=== PATIENT | female | born 1950 | race Caucasian/White ===

== ENCOUNTER 2017-07-10 14:26 | Emergency (ER) | payer MEDICAID ==
[~2017-07-10] VITALS: Ht 154.9 cm; Wt 83.5 kg
[~2017-07-10 14:26] MED LIST: ABIL5TAB6 PO; ASPI81TA82 PO; BETH25 PO; DICY10 PO; FOSA70TA PO; GABA300C3 PO; IPRAAER INH; LEXA10TA PO; LIDO5T TOP; LIPI10TA PO; NORC10TA2 PO; OMEP20TA39 PO; POTA10IN2 PO; PROP20TA3 PO; ROFL1TAB2 PO; ROPI1TAB72 PO; SPIRCAP INH; TRAZPOW PO; VIST25CA PO; VITATAB25 PO
[2017-07-10 14:29] VITALS: BP 128/65; PULSE 108; RESP 22; TEMP 98.8; O2SAT 95
[2017-07-10] MEDS ORDERED: ALBU0.08 NEB (14:43)
[2017-07-10] MEDS ORDERED: PROP20TA3 PO (14:43)
[2017-07-10] MEDS ORDERED: TRAZ100T6 PO (14:43)
[2017-07-10] MEDS ORDERED: ABIL2TAB2 PO (14:43)
[2017-07-10] MEDS ORDERED: POTA10TA2 PO (14:43)
[2017-07-10] MEDS ORDERED: SPIRCAP INH (14:43)
[2017-07-10] MEDS ORDERED: REQU3TAB PO (14:43)
[2017-07-10] MEDS ORDERED: OMEP20TA PO (14:43)
[2017-07-10] MEDS ORDERED: ASPI81CH PO (14:43)
[2017-07-10] MEDS ORDERED: FOSA70TA PO (14:43)
[2017-07-10] MEDS ORDERED: VITA1000 PO (14:44)
[2017-07-10] MEDS ORDERED: VIST25CA PO (14:44)
[2017-07-10] MEDS ORDERED: HYDR-3366 PO (14:44)
[2017-07-10] MEDS ORDERED: DOXY1LIQ3 PO (14:44)
[2017-07-10] MEDS ORDERED: BETH25TA2 PO (14:44)
[2017-07-10] MEDS ORDERED: DICY10 PO (14:44)
[2017-07-10] MEDS ORDERED: LEXA20TA PO (14:44)
[2017-07-10] MEDS ORDERED: GABA400C5 PO (14:44)
[2017-07-10] MEDS ORDERED: LIPI10TA PO (14:44)
[2017-07-10] MEDS ORDERED: BETH10TA2 PO (14:44)
[2017-07-10] MEDS ORDERED: VENTAER INH (14:45)
[2017-07-10 14:50] VITALS: BP 95/63; PULSE 100; RESP 20; TEMP 98.9; O2SAT 95
[2017-07-10] MEDS ORDERED: SODIUM CHLORIDE 0.9% FLUSH 10 ML FLUSH IVF PRN (15:00)
[2017-07-10] MEDS ORDERED: predniSONE 20 MG TAB PO ONE (15:00)
[2017-07-10] MEDS ORDERED: AZITHROMYCIN 250 MG TAB PO ONE (15:00)
[2017-07-10] MEDS: RESP: ALBUTEROL 2.5 MG/IPRATROPIUM 0.5 MG NEB (SCH) INH (15:06)
[2017-07-10] MEDS ORDERED: PRED-503 PO (15:41)
[2017-07-10] MEDS ORDERED: AZIT250T3 PO (15:41)
[2017-07-10] MEDS ORDERED: DOXY100C PO (15:42)
--- NOTE | 2017-07-10 15:43 | PD ---
HPI Chief Complaint: Respiratory Symptoms Time Seen by Provider: 14:40 Travel History International Travel<30 days: No Contact w/Intl Traveler<30days: No Traveled to known affect area: No History of Present Illness HPI Is a 66 year-old woman who presents to the emergency department complaining of shortness of breath. She is a history of COPD. She quit smoking about a week ago. 3 days ago she started getting increased cough, congestion, and difficulty breathing. She's had increased productive cough. She's been taking some [id number] cough cold medicines without significant relief. She has no fevers. No leg swelling. No real chest pain. History Past Medical History Narrative Medical COPD Hyperlipidemia Restless leg syndrome Urinary incontinence Depression/anxiety IBS Influenza Vaccination: No Menopausal: Yes Social History Alcohol Use: No Tobacco Use: Yes (1 PPD) Allergies-Medications (Allergen,Severity, Reaction): Coded Allergies: No Known Allergies (Verified , 05/31/16) Reported Meds & Prescriptions Reported Meds & Active Scripts Active Reported Ventolin Hfa 18 GM Inh (Albuterol Sulfate) 90 Mcg/Act Aer 2 Puff INH Q4-6H PRN Robitussin Nighttime Cough Liq (Doxylamine-Dextromethorphan Liq) 12.5-30 Mg/10 Ml Soln 10 Ml PO Q6H PRN Lipitor (Atorvastatin Calcium) 10 Mg Tab 10 Mg PO DAILY Bethanechol 25 Mg Tab 25 Mg PO QID Bethanechol 10 Mg Tab 10 Mg PO Q8HR Bentyl (Dicyclomine HCl) 10 Mg Cap 10 Mg PO TID PRN Lexapro (Escitalopram Oxalate) 20 Mg Tab 20 Mg PO DAILY Vitamin D-1000 (Cholecalciferol) 1,000 Unit Tab 50,000 Units PO WEEKLY [place] (Hydrocodone-Acetaminophen) 10-325 Mg Tab 1 Tab PO Q8HR PRN Gabapentin 400 Mg Cap 400 Cap PO TID Vistaril (Hydroxyzine Pamoate) 25 Mg Cap 25 Mg PO BID PRN Albuterol Neb (Albuterol Sulfate) 2.5 Mg/3 Ml Neb 2.5 Mg NEB Q4HR NEB While awake Potassium Chloride ER (Potassium Chloride) 10 Meq Tab 10 Meq PO BID Omeprazole 20 Mg Tab 20 Mg PO DAILY Propranolol (Propranolol HCl) 20 Mg Tab 20 Mg PO Q12HR Requip (Ropinirole) 3 Mg Tab 3 Mg PO HS Trazodone (Trazodone HCl) 100 Mg Tablet 100 Mg PO HS Spiriva Handihaler (Tiotropium Inh) 18 Mcg Cap 18 Mcg INH DAILY 1 capsule = 18 mcg Aspirin 81 Mg Chew 81 Mg PO DAILY Abilify (Aripiprazole) 2 Mg Tab 2 Mg PO DAILY Fosamax (Alendronate Sodium) 70 Mg Tab 70 Mg PO Q7D Review of Systems Except as stated in HPI: all other systems reviewed are Neg Physical Exam Narrative GENERAL: Well-appearing 66 year-old woman, no acute distress. SKIN: Focused skin assessment warm/dry. HEAD: Atraumatic. Normocephalic. CARDIOVASCULAR: Regular rate and rhythm. No murmur appreciated. RESPIRATORY: Lungs with moderate wheezing throughout the posterior lung lua. Moderate respiratory distress. Able to speak in short sentences. GASTROINTESTINAL: Abdomen soft, non-tender, nondistended. Hepatic and splenic margins not palpable. MUSCULOSKELETAL: No obvious deformities. No edema. NEUROLOGICAL: Awake and alert. No obvious cranial nerve deficits. Motor grossly within normal limits. Normal speech. Data Data Last Documented VS Vital Signs Date Time Temp Pulse Resp B/P Pulse Ox O2 Delivery O2 Flow Rate FiO2 07/10/17 14:55 95 Room Air 07/10/17 14:50 98.9 100 20 95/63 Orders Iv Access Insert/Monitor (07/10/17 14:48) Electrocardiogram (07/10/17 14:48) Ecg Monitoring (07/10/17 14:48) Oximetry (07/10/17 14:48) Oxygen Administration (07/10/17 14:48) Chest, Single Ap (07/10/17 14:48) Sodium Chloride 0.9% Flush (Ns Flush) (07/10/17 15:00) Albuterol-Ipratropium Neb (Duoneb Neb) (07/10/17 15:00) Azithromycin (Zithromax) (07/10/17 15:00) Prednisone (Deltasone) (07/10/17 15:00) MDM Medical Decision Making Medical Screen Exam Complete: Yes Emergency Medical Condition: Yes Interpretation(s) My review of EKG: Sinus tachycardia rate of 100, and leftward axis, normal intervals, no definite evidence of acute ischemia. Differential Diagnosis COPD exacerbation, pneumonia, URI, CHF, PE, other Narrative Course Medical decision making 26 old woman presents emergent arm with evidence of COPD exacerbation one week after quitting smoking. She was encouraged to continue smoking cessation. We' ll check x-ray to look for pneumonia. She overall looks fairly well. We'll give bronchodilators, steroids, antibiotics. Diagnosis Primary Impression: COPD exacerbation Additional Instructions: Take antibiotics as prescribed. Continue albuterol every 4 hours until symptoms resolve. Take steroids as prescribed. Follow-up with your primary doctor in 2-4 days. Return to the emergency department for any new or worsening symptoms. Med/Other Pt SpecificInfo: Prescription(s) given Scripts Doxycycline Hyclate 100 Mg [id number] Mg PO BID #20 CAP Ref 0 Prov:Torito Lozoya MD 07/10/17 Prednisone (Deltasone)20 Mg Tab40 Mg PO DAILY 10 Days Prov:Torito Lozoya MD 07/10/17 Disposition: 01 DISCHARGE HOME Condition: Stable Torito Lozoya MD Jul 10, 2017 15:43
--- NOTE | 2017-07-10 15:48 | RADRPT ---
EXAM DATE/TIME: 07/10/2017 15:37 [facility] COMPARISON: CHEST SINGLE AP, May 03, 2016, 18:46. INDICATIONS : Shortness of breath and chest pain. MEDICAL HISTORY : Chronic obstructive pulmonary disease. SURGICAL HISTORY : None. ENCOUNTER: Initial ACUITY: 3 days PAIN SCORE: 5/10 LOCATION: Left chest Middle. FINDINGS: A single view of the chest demonstrates mild interstitial vascular prominence similar to that seen pr eviously. There is no evidence of consolidating infiltrate. Heart remains normal in size. CONCLUSION: Chronic interstitial prominence without evidence of consolidating infiltrate, pulmonary edema or effu sions. Masood Gilbert MD on July 10, 2017 at 15:45 Board Certified Radiologist. This report was verified electronically.
[2017-07-10 16:27] VITALS: BP 120/58
--- NOTE | 2017-07-11 15:23 | EKG ---
Date Performed: 07/10/2017 Time Performed: 14:34:37 PTAGE: 66 years EKG: SINUS TACHYCARDIA Compared to prior tracing no significant change ABNORMAL RHYTHM ECG PREVIOUS TRACING : 05/03/2016 @ 1853 DOCTOR: Ej Azar Interpretating Date/Time 07/11/2017 15:21:07
== END 2017-07-10 16:29 | disposition home or self-care (01) ==
LOC: PHED 14:26
DX: J44.1 Chronic obstructive pulmonary disease with (acute) exacerbation (principal); Z79.82 Long term (current) use of aspirin; E78.5 Hyperlipidemia, unspecified; G25.81 Restless legs syndrome; K58.9 Irritable bowel syndrome, unspecified; F17.210 Nicotine dependence, cigarettes, uncomplicated; R07.9 Chest pain, unspecified; R00.0 Tachycardia, unspecified
CPT/HCPCS: 71010; 93005; 94640; 94664; 99284; J7512

== ENCOUNTER 2017-08-13 03:13 | Emergency (ER) | payer MEDICAID ==
[~2017-08-13] VITALS: Ht 154.9 cm; Wt 84.0 kg
[~2017-08-13 03:13] MED LIST changes: +ABIL2TAB2 PO; -ABIL5TAB6 PO; +ALBU0.08 NEB; +ASPI81CH PO; -ASPI81TA82 PO; +BETH10TA2 PO; -BETH25 PO; +BETH25TA2 PO; +DOXY100C PO; +DOXY1LIQ3 PO; -GABA300C3 PO; +GABA400C5 PO; +HYDR-3366 PO; -IPRAAER INH; -LEXA10TA PO; +LEXA20TA PO; -LIDO5T TOP; -NORC10TA2 PO; +OMEP20TA PO; -OMEP20TA39 PO; -POTA10IN2 PO; +POTA10TA2 PO; +PRED-503 PO; +REQU3TAB PO; -ROFL1TAB2 PO; -ROPI1TAB72 PO; +TRAZ100T6 PO; -TRAZPOW PO; +VENTAER INH; +VITA1000 PO; -VITATAB25 PO
[2017-08-13 03:21] VITALS: BP 135/73; PULSE 117; RESP 18; TEMP 98.3; O2SAT 96
--- NOTE | 2017-08-13 03:41 | PD ---
HPI Chief Complaint: Musculoskeletal Complaint Time Seen by Provider: 03:35 Travel History International Travel<30 days: No Contact w/Intl Traveler<30days: No Traveled to known affect area: No History of Present Illness HPI patient is a 66-year-old female smoker half pack per day presents emergency department for evaluation of right flank pain. Patient states she's been coughing congested the past week and now she has right flank pain whenever she takes deep breath or coughs. Denies any fever denies any sputum production. Denies any weight loss. Patient is concerned because she has had some liver problems the past but denies any blood in the stool yellowing of the eyes or skin .States symptoms been gradually worsening. Moderate in severity. PFSH Past Medical History Hx Anticoagulant Therapy: Yes (ASA) Arthritis: Yes Asthma: No Autoimmune Disease: Yes (RA) Blood Disorders: No Bipolar Disorder: Yes Anxiety: Yes Depression: Yes Heart Rhythm Problems: No Cancer: No Cardiac Catheterization: No Cardiovascular Problems: No High Cholesterol: Yes Chest Pain: No Congestive Heart Failure: No COPD: Yes Cerebrovascular Accident: Yes (TIA) Coronary Artery Disease: Yes Diabetes: No Diminished Hearing: No Deep Vein Thrombosis: Yes (PE) Endocrine: No Fibromyalgia: Yes GERD: Yes Headaches: Yes Hiatal Hernia: No Hypertension: No Immune Disorder: No Implanted Vascular Access Dvce: No Kidney Stones: No Musculoskeletal: Yes (fibromyalgia, arthritis) Neurologic: Yes (TIAs) Psychiatric: Yes Reproductive: No Respiratory: Yes Immunizations Current: Yes Migraines: Yes Myocardial Infarction: No Renal Failure: No Seizures: No Sickle Cell Disease: No Sleep Apnea: Yes Thyroid Disease: No Ulcer: No Tetanus Vaccination: > 5 Years Influenza Vaccination: Yes ?: Not Menopausal: Yes Ovarian Cysts: Yes Tubal Ligation: Yes (1975) Past Surgical History Abdominal Surgery: Yes AICD: No Appendectomy: Yes Cardiac Surgery: No Cholecystectomy: Yes Coronary Artery Bypass Graft: No Ear Surgery: No Endocrine Surgery: No Eye Surgery: No Genitourinary Surgery: No Gynecologic Surgery: Yes (right ovary removed) Hysterectomy: Yes Insulin Pump: No Joint Replacement: No Neurologic Surgery: Yes Oral Surgery: Yes (Complete teeth extraction) Pacemaker: No Thoracic Surgery: No Tonsillectomy: Yes Other Surgery: Yes (BL ankles, BL knees, pilonidal cyst) Family History Family Myocardial Infarction: Yes ( STATED) Social History Alcohol Use: No Tobacco Use: Yes (1 PPD) Substance Use: No Allergies-Medications (Allergen,Severity, Reaction): Coded Allergies: No Known Allergies (Verified , 08/13/17) Reported Meds & Prescriptions Reported Meds & Active Scripts Active Mucinex DM (Dextromethorphan-Guaifenesin) 30-600 Mg Tab 1 Tab PO BID PRN Ultram (Tramadol HCl) 50 Mg Tab 50 Mg PO Q6H PRN Reported Flexeril (Cyclobenzaprine HCl) 5 Mg Tab 5 Mg PO HS Ventolin Hfa 18 GM Inh (Albuterol Sulfate) 90 Mcg/Act Aer 2 Puff INH Q4-6H PRN Lipitor (Atorvastatin Calcium) 10 Mg Tab 10 Mg PO DAILY Bethanechol 25 Mg Tab 25 Mg PO QID Bentyl (Dicyclomine HCl) 10 Mg Cap 10 Mg PO TID PRN Lexapro (Escitalopram Oxalate) 20 Mg Tab 20 Mg PO DAILY Vitamin D-1000 (Cholecalciferol) 1,000 Unit Tab 50,000 Units PO WEEKLY Gabapentin 400 Mg Cap 400 Cap PO TID Vistaril (Hydroxyzine Pamoate) 25 Mg Cap 25 Mg PO BID PRN Albuterol Neb (Albuterol Sulfate) 2.5 Mg/3 Ml Neb 2.5 Mg NEB Q4HR NEB While awake Potassium Chloride ER (Potassium Chloride) 10 Meq Tab 10 Meq PO BID Omeprazole 20 Mg Tab 20 Mg PO DAILY Propranolol (Propranolol HCl) 20 Mg Tab 20 Mg PO Q12HR Requip (Ropinirole) 3 Mg Tab 3 Mg PO HS Trazodone (Trazodone HCl) 100 Mg Tablet 100 Mg PO HS Spiriva Handihaler (Tiotropium Inh) 18 Mcg Cap 18 Mcg INH DAILY 1 capsule = 18 mcg Aspirin 81 Mg Chew 81 Mg PO DAILY Abilify (Aripiprazole) 2 Mg Tab 2 Mg PO DAILY Fosamax (Alendronate Sodium) 70 Mg Tab 70 Mg PO Q7D Review of Systems Except as stated in HPI: all other systems reviewed are Neg Physical Exam Narrative GENERAL: Well-nourished, well-developed patient. SKIN: Focused skin assessment warm/dry. No rash no wound. No bruising. HEAD: Normocephalic. EYES: No scleral icterus. No injection or drainage. NECK: Supple, trachea midline. No JVD or lymphadenopathy. CARDIOVASCULAR: Regular rate and rhythm without murmurs, gallops, or rubs. RESPIRATORY: Breath sounds equal bilaterally. No accessory muscle use. Patient is some tenderness to the right flank, when she coughs she appears to have spasm of the right side of the ribs. GASTROINTESTINAL: Abdomen soft, non-tender, nondistended. MUSCULOSKELETAL: No cyanosis, or edema. BACK: Nontender without obvious deformity. No CVA tenderness. Data Data Last Documented VS Vital Signs Date Time Temp Pulse Resp B/P (MAP) Pulse Ox O2 Delivery O2 Flow Rate FiO2 08/13/17 04:58 92 18 136/82 (100) 97 Room Air 08/13/17 03:21 98.3 Orders Orders Chest, Pa & Lat (08/13/17 ) Tramadol (Ultram) (08/13/17 03:45) MDM Medical Decision Making Medical Screen Exam Complete: Yes Emergency Medical Condition: Yes Differential Diagnosis rib pain, rib contusion, rib fracture, pneumonia, URI Narrative Course patient roomed emergency department, she appears well in no obvious distress. Chest x-ray was reassuring. Discussed with her symptomatic management including Ultram for pain control and cough suppressants. Discussed follow-up with a primary care physician and return to ED criteria. She stable for discharge. Diagnosis Primary Impression: Cough Additional Impression: Chest wall pain Med/Other Pt SpecificInfo: Prescription(s) given Scripts Dextromethorphan-Guaifenesin (Mucinex DM) 30-600 Mg Tab 1 TAB PO BID Y for CHEST CONGESTION AND/OR COUGH, #20 TAB 0 Refills Prov: Kenton Hanks MD 08/13/17 Tramadol (Ultram) 50 Mg Tab 50 MG PO Q6H Y for PAIN, #20 TAB 0 Refills Prov: Kenton Hanks MD 08/13/17 Disposition: 01 DISCHARGE HOME Condition: Stable Kenton Hanks MD Aug 13, 2017 03:41
[2017-08-13] MEDS ORDERED: traMADol HCL 50 MG TAB PO ONE (03:45)
[2017-08-13] MEDS ORDERED: CYCL5TAB PO (03:55)
--- NOTE | 2017-08-13 04:19 | RADRPT ---
EXAM DATE/TIME: 08/13/2017 03:46 [facility] COMPARISON: No previous studies available for comparison. INDICATIONS : Right sided rib pain for several days. MEDICAL HISTORY : None. SURGICAL HISTORY : None. ENCOUNTER: Initial ACUITY: 2 days PAIN SCORE: 7/10 LOCATION: Right chest FINDINGS: PA and lateral views of the chest demonstrate the lungs to be symmetrically aerated without evidence of mass, infiltrate or effusion. The cardiomediastinal contours are unremarkable. Articular surface irregularity present at right humeral head. No rib abnormalities identified. CONCLUSION: 1. No active disease. No rib abnormalities identified. Delonte Clark MD on August 13, 2017 at 4:16 Board Certified Radiologist. This report was verified electronically.
[2017-08-13] MEDS ORDERED: MUCI30TA2 PO (04:28)
[2017-08-13] MEDS ORDERED: ULTR50TA5 PO (04:28)
[2017-08-13 04:58] VITALS: BP 136/82; PULSE 92; RESP 18; O2SAT 97
[2017-08-14] MEDS ORDERED: PERC5TAB12 PO (14:30)
== END 2017-08-13 04:59 | disposition home or self-care (01) ==
LOC: PHED 03:13
DX: R05 Cough (principal); R07.89 Other chest pain; E78.00 Pure hypercholesterolemia, unspecified; Z79.82 Long term (current) use of aspirin; Z87.39 Personal history of other diseases of the musculoskeletal system and connective tissue; Z86.2 Personal history of diseases of the blood and blood-forming organs and certain disorders involving the immune mechanism; Z86.59 Personal history of other mental and behavioral disorders; Z87.09 Personal history of other diseases of the respiratory system; Z86.718 Personal history of other venous thrombosis and embolism; Z87.19 Personal history of other diseases of the digestive system; Z86.69 Personal history of other diseases of the nervous system and sense organs
CPT/HCPCS: 71020; 99283

== ENCOUNTER 2017-08-14 11:35 | Emergency (ER) | payer MEDICAID ==
[~2017-08-14] VITALS: Ht 162.6 cm; Wt 84.7 kg
[~2017-08-14 11:35] MED LIST changes: +CYCL5TAB PO; +MUCI30TA2 PO; +ULTR50TA5 PO
[2017-08-14 11:38] VITALS: BP 117/56; PULSE 100; RESP 20; TEMP 98.5; O2SAT 93
[2017-08-14] MEDS ORDERED: SODIUM CHLOR 0.9% 1000 ML INJ 1,000 ML IV SCH (12:59)
[2017-08-14] MEDS ORDERED: SODIUM CHLORIDE 0.9% FLUSH 10 ML FLUSH IV FLUSH PRN (13:00)
[2017-08-14] MEDS ORDERED: MORPHINE SULFATE 4 MG/ML INJ IV PUSH ONE (13:00)
--- NOTE | 2017-08-14 13:06 | PD ---
HPI Chief Complaint: Abdominal Pain Time Seen by Provider: 12:44 Travel History International Travel<30 days: No Contact w/Intl Traveler<30days: No Traveled to known affect area: No History of Present Illness HPI Patient is 66-year-old female with history of COPD, presents to emergency room complaints of right-sided flank pain. Patient reports that she has been having persistent right-sided flank pain for the past 3 days, reports that symptoms have been unrelenting and is worse with exertion as well as deep inspiration. Patient reports that she is not suffering any trauma, she has been doing heavy lifting in preparation for [place]. Reports that she was seen in the ER yesterday and was diagnosed with cough and chest wall pain and was given a prescription for tramadol as well as for dextromethorphan - guanifensen. Patient reports no relief of symptoms with this. Patient is concerned as she is still having persistent right-sided flank pain. Patient denies hematuria, urinary urgency frequency. Patient with no other complaints. PFSH Past Medical History Hx Anticoagulant Therapy: Yes (ASA) Arthritis: Yes Asthma: No Autoimmune Disease: Yes (RA) Blood Disorders: No Bipolar Disorder: Yes Anxiety: Yes Depression: Yes Heart Rhythm Problems: No Cancer: No Cardiac Catheterization: No Cardiovascular Problems: No High Cholesterol: Yes Chest Pain: No Congestive Heart Failure: No COPD: Yes Cerebrovascular Accident: Yes (TIA) Coronary Artery Disease: Yes Diabetes: No Diminished Hearing: No Deep Vein Thrombosis: Yes (PE) Endocrine: No Fibromyalgia: Yes GERD: Yes Headaches: Yes Hiatal Hernia: No Hypertension: No Immune Disorder: No Implanted Vascular Access Dvce: No Kidney Stones: No Musculoskeletal: Yes (fibromyalgia, arthritis) Neurologic: Yes (TIAs) Psychiatric: Yes Reproductive: No Respiratory: Yes Immunizations Current: Yes Migraines: Yes Myocardial Infarction: No Renal Failure: No Seizures: No Sickle Cell Disease: No Sleep Apnea: Yes Thyroid Disease: No Ulcer: No Menopausal: Yes Ovarian Cysts: Yes Tubal Ligation: Yes (1975) Past Surgical History Abdominal Surgery: Yes AICD: No Appendectomy: Yes Cardiac Surgery: No Cholecystectomy: Yes Coronary Artery Bypass Graft: No Ear Surgery: No Endocrine Surgery: No Eye Surgery: No Genitourinary Surgery: No Gynecologic Surgery: Yes (right ovary removed) Hysterectomy: Yes Insulin Pump: No Joint Replacement: No Neurologic Surgery: Yes Oral Surgery: Yes (Complete teeth extraction) Pacemaker: No Thoracic Surgery: No Tonsillectomy: Yes Other Surgery: Yes (BL ankles, BL knees, pilonidal cyst) Family History Family Myocardial Infarction: Yes ( STATED) Social History Alcohol Use: No Tobacco Use: Yes (1 PPD) Substance Use: No Allergies-Medications (Allergen,Severity, Reaction): Coded Allergies: No Known Allergies (Verified , 08/13/17) Reported Meds & Prescriptions Reported Meds & Active Scripts Active Percocet (Oxycodone-Acetaminophen) 5-325 mg Tab 1 Tab PO Q6H PRN 3 Days Mucinex DM (Dextromethorphan-Guaifenesin) 30-600 Mg Tab 1 Tab PO BID PRN Ultram (Tramadol HCl) 50 Mg Tab 50 Mg PO Q6H PRN Reported Flexeril (Cyclobenzaprine HCl) 5 Mg Tab 5 Mg PO HS Ventolin Hfa 18 GM Inh (Albuterol Sulfate) 90 Mcg/Act Aer 2 Puff INH Q4-6H PRN Lipitor (Atorvastatin Calcium) 10 Mg Tab 10 Mg PO DAILY Bethanechol 25 Mg Tab 25 Mg PO QID Bentyl (Dicyclomine HCl) 10 Mg Cap 10 Mg PO TID PRN Lexapro (Escitalopram Oxalate) 20 Mg Tab 20 Mg PO DAILY Vitamin D-1000 (Cholecalciferol) 1,000 Unit Tab 50,000 Units PO WEEKLY Gabapentin 400 Mg Cap 400 Cap PO TID Vistaril (Hydroxyzine Pamoate) 25 Mg Cap 25 Mg PO BID PRN Albuterol Neb (Albuterol Sulfate) 2.5 Mg/3 Ml Neb 2.5 Mg NEB Q4HR NEB While awake Potassium Chloride ER (Potassium Chloride) 10 Meq Tab 10 Meq PO BID Omeprazole 20 Mg Tab 20 Mg PO DAILY Propranolol (Propranolol HCl) 20 Mg Tab 20 Mg PO Q12HR Requip (Ropinirole) 3 Mg Tab 3 Mg PO HS Trazodone (Trazodone HCl) 100 Mg Tablet 100 Mg PO HS Spiriva Handihaler (Tiotropium Inh) 18 Mcg Cap 18 Mcg INH DAILY 1 capsule = 18 mcg Aspirin 81 Mg Chew 81 Mg PO DAILY Abilify (Aripiprazole) 2 Mg Tab 2 Mg PO DAILY Fosamax (Alendronate Sodium) 70 Mg Tab 70 Mg PO Q7D Review of Systems General / Constitutional: No: Fever Eyes: No: Visual changes HENT: No: Headaches Cardiovascular: No: Chest Pain or Discomfort Respiratory: No: Shortness of Breath Gastrointestinal: No: Abdominal Pain Genitourinary: Positive: Flank Pain, No: Dysuria Musculoskeletal: No: Pain Skin: No Rash Neurologic: No: Weakness Psychiatric: No: Depression Endocrine: No: Polydipsia Hematologic/Lymphatic: No: Easy Bruising Physical Exam Narrative GENERAL: Mild distress SKIN: Focused skin assessment warm/dry. HEAD: Atraumatic. Normocephalic. EYES: Pupils equal and round. No scleral icterus. No injection or drainage. ENT: No nasal bleeding or discharge. Mucous membranes pink and moist. NECK: Trachea midline. No JVD. CARDIOVASCULAR: Regular rate and rhythm. No murmur appreciated. RESPIRATORY: No accessory muscle use. Clear to auscultation. Breath sounds equal bilaterally. GASTROINTESTINAL: Abdomen soft, non-tender, nondistended. Hepatic and splenic margins not palpable. MUSCULOSKELETAL: No obvious deformities. No clubbing. No cyanosis. No edema. Right sided flank pain NEUROLOGICAL: Awake and alert. No obvious cranial nerve deficits. Motor grossly within normal limits. Normal speech. PSYCHIATRIC: Appropriate mood and affect; insight and judgment normal. Data Data Last Documented VS Vital Signs Date Time Temp Pulse Resp B/P (MAP) Pulse Ox O2 Delivery O2 Flow Rate FiO2 08/14/17 14:14 68 18 147/79 (101) 94 Room Air 08/14/17 11:38 98.5 Orders Orders Complete Blood Count With Diff (08/14/17 12:59) Comprehensive Metabolic Panel (08/14/17 12:59) Prothrombin Time / Inr (Pt) (08/14/17 12:59) Act Partial Throm Time (Ptt) (08/14/17 12:59) Urinalysis - C+S If Indicated (08/14/17 12:59) Ct Abd/Pel W/O Iv Contrast (08/14/17 12:59) Morphine Inj (Morphine Inj) (08/14/17 13:00) Sodium Chlor 0.9% 1000 Ml Inj (Ns 1000 M (08/14/17 12:59) Sodium Chloride 0.9% Flush (Ns Flush) (08/14/17 13:00) Labs Laboratory Tests Test 08/14/17 13:00 08/14/17 13:14 Urine Collection Type VOIDED Urine Color YELLOW Urine Turbidity CLEAR Urine pH 6.0 Urine Specific [place] 1.017 Urine Protein NEG mg/dL Urine Glucose (UA) NEG mg/dL Urine Ketones NEG mg/dL Urine Occult Blood NEG Urine Nitrite NEG Urine Bilirubin NEG Urine Leukocyte Esterase NEG Urine RBC 0-3 /hpf Urine WBC 0-2 /hpf Urine Squamous Epithelial Cells 0-3 /hpf Microscopic Urinalysis Comment CULT NOT INDICATED White Blood Count 10.8 TH/MM3 Red Blood Count 5.11 MIL/MM3 Hemoglobin 14.0 GM/DL Hematocrit 41.9 % Mean Corpuscular Volume 81.9 FL Mean Corpuscular Hemoglobin 27.4 PG Mean Corpuscular Hemoglobin Concent 33.4 % Red Cell Distribution Width 12.9 % Platelet Count 278 TH/MM3 Mean Platelet Volume 7.0 FL Neutrophils (%) (Auto) 66.9 % Lymphocytes (%) (Auto) 20.6 % Monocytes (%) (Auto) 9.5 % Eosinophils (%) (Auto) 2.3 % Basophils (%) (Auto) 0.7 % Neutrophils # (Auto) 7.3 TH/MM3 Lymphocytes # (Auto) 2.2 TH/MM3 Monocytes # (Auto) 1.0 TH/MM3 Eosinophils # (Auto) 0.2 TH/MM3 Basophils # (Auto) 0.1 TH/MM3 CBC Comment DIFF FINAL Differential Comment Prothrombin Time 10.9 SEC Prothromb Time International Ratio 1.0 RATIO Activated Partial Thromboplast Time 27.0 SEC Blood Urea Nitrogen 13 MG/DL Creatinine 0.89 MG/DL Random Glucose 81 MG/DL Total Protein 7.5 GM/DL Albumin 3.5 GM/DL Calcium Level 8.9 MG/DL Alkaline Phosphatase 88 U/L Aspartate Amino Transf (AST/SGOT) 23 U/L Alanine Aminotransferase (ALT/SGPT) 24 U/L Total Bilirubin 0.6 MG/DL Sodium Level 135 MEQ/L Potassium Level 4.3 MEQ/L Chloride Level 100 MEQ/L Carbon Dioxide Level 27.7 MEQ/L Anion Gap 7 MEQ/L Estimat Glomerular Filtration Rate 64 ML/MIN [facility] Medical Decision Making Medical Screen Exam Complete: Yes Emergency Medical Condition: Yes Medical Record Reviewed: Yes Interpretation(s) Vital Signs Date Time Temp Pulse Resp B/P (MAP) Pulse Ox O2 Delivery O2 Flow Rate FiO2 08/14/17 11:38 98.5 100 20 117/56 (76) 93 Differential Diagnosis Differential includes pneumonia, COPD exacerbation, nephrolithiasis, cystitis, pyelonephritis, musculoskeletal pain, rib strain, electrolyte abnormality Narrative Course Patient is a 66-year-old female who returns to emergency room with complaints of right sided flank pain. She has been having right-sided flank pain which has been ongoing for the past 3 days, reports that she was seen in emergency room yesterday and was diagnosed with rib strain and was sent home with tramadol , reports no relief of symptoms with these medications. Patient reports continued pain to her right flank with movement as well as on exertion. Lab work ordered. CT of the abdomen and pelvis without contrast ordered for evaluation of stones or for further etiology of pain Vital Signs Date Time Temp Pulse Resp B/P (MAP) Pulse Ox O2 Delivery O2 Flow Rate FiO2 08/14/17 14:14 68 18 147/79 (101) 94 Room Air 08/14/17 13:40 18 08/14/17 11:38 98.5 100 20 117/56 (76) 93 Laboratory Tests Test 08/14/17 13:00 08/14/17 13:14 Urine Collection Type VOIDED Urine Color YELLOW (YELLW/STRAW) Urine Turbidity CLEAR (CLEAR) Urine pH 6.0 (5.0-8.5) Urine Specific [place] 1.017 (1.002-1.035) Urine Protein NEG mg/dL (NEG-TRACE) Urine Glucose (UA) NEG mg/dL (NEG) Urine Ketones NEG mg/dL (NEG) Urine Occult Blood NEG (NEG) Urine Nitrite NEG (NEG) Urine Bilirubin NEG (NEG) Urine Leukocyte Esterase NEG (NEG) Urine RBC 0-3 /hpf (0-3) Urine WBC 0-2 /hpf (0-5) Urine Squamous Epithelial Cells 0-3 /hpf (0-5) Microscopic Urinalysis Comment CULT NOT INDICATED White Blood Count 10.8 TH/MM3 (4.0-11.0) Red Blood Count 5.11 MIL/MM3 (4.00-5.30) Hemoglobin 14.0 GM/DL (11.6-15.3) Hematocrit 41.9 % (35.0-46.0) Mean Corpuscular Volume 81.9 FL (80.0-100.0) Mean Corpuscular Hemoglobin 27.4 PG (27.0-34.0) Mean Corpuscular Hemoglobin Concent 33.4 % (32.0-36.0) Red Cell Distribution Width 12.9 % (11.6-17.2) Platelet Count 278 TH/MM3 (150-450) Mean Platelet Volume 7.0 FL (7.0-11.0) Neutrophils (%) (Auto) 66.9 % (16.0-70.0) Lymphocytes (%) (Auto) 20.6 % (9.0-44.0) Monocytes (%) (Auto) 9.5 % (0.0-8.0) Eosinophils (%) (Auto) 2.3 % (0.0-4.0) Basophils (%) (Auto) 0.7 % (0.0-2.0) Neutrophils # (Auto) 7.3 TH/MM3 (1.8-7.7) Lymphocytes # (Auto) 2.2 TH/MM3 (1.0-4.8) Monocytes # (Auto) 1.0 TH/MM3 (0-0.9) Eosinophils # (Auto) 0.2 TH/MM3 (0-0.4) Basophils # (Auto) 0.1 TH/MM3 (0-0.2) CBC Comment DIFF FINAL Differential Comment Prothrombin Time 10.9 SEC (9.8-11.6) Prothromb Time International Ratio 1.0 RATIO Activated Partial Thromboplast Time 27.0 SEC (24.3-30.1) Blood Urea Nitrogen 13 MG/DL (7-18) Creatinine 0.89 MG/DL (0.50-1.00) Random Glucose 81 MG/DL (74-106) Total Protein 7.5 GM/DL (6.4-8.2) Albumin 3.5 GM/DL (3.4-5.0) Calcium Level 8.9 MG/DL (8.5-10.1) Alkaline Phosphatase 88 U/L (45-117) Aspartate Amino Transf (AST/SGOT) 23 U/L (15-37) Alanine Aminotransferase (ALT/SGPT) 24 U/L (10-53) Total Bilirubin 0.6 MG/DL (0.2-1.0) Sodium Level 135 MEQ/L (136-145) Potassium Level 4.3 MEQ/L (3.5-5.1) Chloride Level 100 MEQ/L (98-107) Carbon Dioxide Level 27.7 MEQ/L (21.0-32.0) Anion Gap 7 MEQ/L (5-15) Estimat Glomerular Filtration Rate 64 ML/MIN (>89) Last Impressions Abdomen/Pelvis CT 08/14/17 1259 Signed Impressions: Service Date/Time: August 13:29 - CONCLUSION: Unremarkable for acute pathology. Status post suspected hysterectomy and cholecystectomy. No etiology for right flank pain is noted. Torito Adkins MD Patient reevaluated, she feeling much better at this time. Reviewed all labs and all studies with patient in detail, patient with most likely muscle skeletal flank pain. Signs and symptoms of when to return to the emergency room was reviewed patient in detail. Patient will follow up with her primary care doctor and will return to the emergency room as needed. Diagnosis Primary Impression: Flank pain, acute Patient Instructions: General Instructions, Narcotic given in the ED Additional Instructions: Please return to the emergency room as needed Please follow-up with your primary care doctor Return to the emergency room symptoms worsen or progress Do not drive or operate heavy machinery while taking narcotic pain medications Med/Other Pt SpecificInfo: Prescription(s) given Scripts Oxycodone-Acetaminophen (Percocet) 5-325 mg Tab 1 TAB PO Q6H Y for PAIN for 3 Days, #12 TAB 0 Refills Prov: Ghazala Tenorio DO 08/14/17 Disposition: 01 DISCHARGE HOME Condition: Stable Ghazala Tenorio DO Aug 14, 2017 13:05
[2017-08-14 13:20] LABS: AUTOMATED NEUTROPHIL # 7.3 TH/MM3 (1.8-7.7); BASOPHIL # 0.1 TH/MM3 (0-0.2); BASOPHIL % 0.7 % (0.0-2.0); EOSINOPHIL # 0.2 TH/MM3 (0-0.4); EOSINOPHIL % 2.3 % (0.0-4.0); HEMATOCRIT 41.9 % (35.0-46.0); HEMO FLAGS DIFF FINAL; LYMPH % 20.6 % (9.0-44.0); LYMPHOCYTE # 2.2 TH/MM3 (1.0-4.8); MEAN CELL VOLUME 81.9 FL (80.0-100.0); MEAN CORPUSCULAR HEMOGLOBIN 27.4 PG (27.0-34.0); MEAN CORPUSCULAR HGB CONC 33.4 % (32.0-36.0); MONO % 9.5 % (0.0-8.0); NEUT % 66.9 % (16.0-70.0); PLATELET COUNT 278 TH/MM3 (150-450); RED BLOOD COUNT 5.11 MIL/MM3 (4.00-5.30); RED CELL DISTRIBUTION WIDTH 12.9 % (11.6-17.2); WHITE BLOOD COUNT 10.8 TH/MM3 (4.0-11.0)
[2017-08-14 13:25] LABS: BLOOD, URINE NEG (NEG); GLUCOSE,URINE NEG (NEG); KETONE, URINE NEG (NEG); NITRITE,URINE NEG (NEG)
[2017-08-14 13:32] LABS: CHLORIDE 100 MEQ/L (98-107); POTASSIUM 4.3 MEQ/L (3.5-5.1); SODIUM (NA) 135 MEQ/L (136-145)
[2017-08-14 13:36] LABS: ANION GAP 7 MEQ/L (5-15); BICARBONATE 27.7 MEQ/L (21.0-32.0); BLOOD UREA NITROGEN 13 MG/DL (7-18)
[2017-08-14 13:38] LABS: PROTHROMBIN TIME - PATIENT 10.9 SEC (9.8-11.6)
[2017-08-14 13:39] LABS: AST (GOT) 23 U/L (15-37)
[2017-08-14 13:40] LABS: ALT (GPT) 24 U/L (10-53); GLOMERULAR FILTRATION RATE 64 ML/MIN (>89)
[2017-08-14 13:42] LABS: ALKALINE PHOSPHATASE 88 U/L (45-117); TOTAL BILIRUBIN ADULT 0.6 MG/DL (0.2-1.0)
[2017-08-14 13:52] LABS: COMMENT (UR) CULT NOT INDICATED; CULTURE IF INDICATED CULT NOT INDICATED; METHOD OF COLLECTION VOIDED; RBC, URINE 0-3 /hpf (0-3); SQUAMOUS EPITHELIAL CELL URINE 0-3 /hpf (0-5); URINE COLOR YELLOW (YELLW/STRAW); WBC, URINE 0-2 /hpf (0-5)
--- NOTE | 2017-08-14 14:06 | RADRPT ---
EXAM DATE/TIME: 08/14/2017 13:29 [facility] COMPARISON: CT ABDOMEN & PELVIS W CONTRAST, November 02, 2014, 10:07. INDICATIONS : Right flank pain x 3 days. ORAL CONTRAST: No oral contrast ingested. RADIATION DOSE: 23.17 CTDIvol (mGy) MEDICAL HISTORY : Chronic obstructive pulmonary disease. Gastroesophageal reflux disease. Deep venous thrombosis.Cerebr ovascual accident. Hypertension. SURGICAL HISTORY : Tubal ligation. Hysterectomy. ENCOUNTER: Initial ACUITY: 3 days PAIN SCALE: 7/10 LOCATION: Right flank TECHNIQUE: Volumetric scanning of the abdomen and pelvis was performed. Using automated exposure control and ad justment of the mA and/or kV according to patient size, radiation dose was kept as low as reasonably achievable to obtain optimal diagnostic quality images. DICOM format image data is available electro nically for review and comparison. FINDINGS: LOWER LUNGS: The visualized lower lungs are clear. LIVER: Homogeneous density without lesion. There is no dilation of the biliary tree. Suspected cholecystect janine SPLEEN: Normal size without lesion. PANCREAS: Within normal limits. KIDNEYS: Normal in size and shape. There is no mass, stone, or hydronephrosis other the small cyst mid right kidney. ADRENAL GLANDS: Within normal limits. VASCULAR: There is no aortic aneurysm. BOWEL/MESENTERY: The stomach, small bowel, and colon demonstrate no acute abnormality. There is no free intraperitone al air or fluid. ABDOMINAL WALL: Within normal limits. RETROPERITONEUM: There is no lymphadenopathy. BLADDER: No wall thickening or mass. REPRODUCTIVE: S/p hysterectomy. INGUINAL: There is no lymphadenopathy or hernia. MUSCULOSKELETAL: Within normal limits for patient age. CONCLUSION: Unremarkable for acute pathology. Status post suspected hysterectomy and cholecystectomy. No etiology for right flank pain is noted. Torito Adkins MD on August 14, 2017 at 14:01 Board Certified Radiologist. This report was verified electronically.
[2017-08-14 14:14] VITALS: BP 147/79; PULSE 68; RESP 18; O2SAT 94
[2017-08-14] MEDS ORDERED: PERC5TAB12 PO (14:30)
== END 2017-08-14 14:39 | disposition home or self-care (01) ==
LOC: PHED 11:35
DX: R10.9 Unspecified abdominal pain (principal); I25.10 Atherosclerotic heart disease of native coronary artery without angina pectoris; M79.7 Fibromyalgia; F17.200 Nicotine dependence, unspecified, uncomplicated
CPT/HCPCS: 74176; 80053; 81001; 85025; 85610; 85730; 96361; 96374; 99285; J2270; J7030

== ENCOUNTER 2017-08-26 14:17 | Emergency (ER) | payer MEDICAID ==
[~2017-08-26] VITALS: Ht 154.9 cm; Wt 85.7 kg
[~2017-08-26 14:17] MED LIST changes: -BETH10TA2 PO; -DOXY100C PO; -DOXY1LIQ3 PO; -HYDR-3366 PO; +PERC5TAB12 PO; -PRED-503 PO
[2017-08-26 14:21] VITALS: BP 131/66; PULSE 130; RESP 16; TEMP 98.8; O2SAT 94
[2017-08-26] MEDS ORDERED: methylPREDNISolone SOD SUCC 125 MG/2 ML VIAL IV PUSH ONE (14:45)
[2017-08-26] MEDS ORDERED: diphenhydrAMINE HCL 50 MG/ML VIAL IV PUSH ONE (14:45)
--- NOTE | 2017-08-26 14:53 | PD ---
HPI Chief Complaint: Allergic/Adverse Reaction Time Seen by Provider: 14:32 Travel History International Travel<30 days: No Contact w/Intl Traveler<30days: No Traveled to known affect area: No History of Present Illness HPI This patient complains of allergic reaction. She started on an antibiotic 3 days ago but she doesn't know the name of it. This morning she developed diffuse hives and itching on her body. Includes extremities and torso. No swelling of lips or tongue or shortness of breath. Symptoms severity is moderate. No alleviating factors. Exacerbating factors include recent antibiotic use. No history of prior allergies PFSH Past Medical History Hx Anticoagulant Therapy: Yes (ASA) Arthritis: Yes Asthma: No Autoimmune Disease: Yes (RA) Blood Disorders: No Bipolar Disorder: Yes Anxiety: Yes Depression: Yes Heart Rhythm Problems: No Cancer: No Cardiac Catheterization: No Cardiovascular Problems: No High Cholesterol: Yes Chest Pain: No Congestive Heart Failure: No COPD: Yes Cerebrovascular Accident: Yes (TIA) Coronary Artery Disease: Yes Diabetes: No Diminished Hearing: No Deep Vein Thrombosis: Yes (PE) Endocrine: No Fibromyalgia: Yes GERD: Yes Headaches: Yes Hiatal Hernia: No Hypertension: No Immune Disorder: No Implanted Vascular Access Dvce: No Kidney Stones: No Musculoskeletal: Yes (fibromyalgia, arthritis) Neurologic: Yes (TIAs) Psychiatric: Yes Reproductive: No Respiratory: Yes Immunizations Current: Yes Migraines: Yes Myocardial Infarction: No Renal Failure: No Seizures: No Sickle Cell Disease: No Sleep Apnea: Yes Thyroid Disease: No Ulcer: No Tetanus Vaccination: > 5 Years Influenza Vaccination: Yes ?: Not Menopausal: Yes Ovarian Cysts: Yes Tubal Ligation: Yes (1975) Past Surgical History Abdominal Surgery: Yes AICD: No Appendectomy: Yes Cardiac Surgery: No Cholecystectomy: Yes Coronary Artery Bypass Graft: No Ear Surgery: No Endocrine Surgery: No Eye Surgery: No Genitourinary Surgery: No Gynecologic Surgery: Yes (right ovary removed) Hysterectomy: Yes Insulin Pump: No Joint Replacement: No Neurologic Surgery: Yes Oral Surgery: Yes (Complete teeth extraction) Pacemaker: No Thoracic Surgery: No Tonsillectomy: Yes Other Surgery: Yes (BL ankles, BL knees, pilonidal cyst) Family History Family Myocardial Infarction: Yes ( STATED) Social History Alcohol Use: No Tobacco Use: Yes (1 PPD) Substance Use: No Allergies-Medications (Allergen,Severity, Reaction): Coded Allergies: No Known Allergies (Verified , 08/26/17) Reported Meds & Prescriptions Reported Meds & Active Scripts Active Mucinex DM (Dextromethorphan-Guaifenesin) 30-600 Mg Tab 1 Tab PO BID PRN Reported Flexeril (Cyclobenzaprine HCl) 5 Mg Tab 5 Mg PO HS Ventolin Hfa 18 GM Inh (Albuterol Sulfate) 90 Mcg/Act Aer 2 Puff INH Q4-6H PRN Lipitor (Atorvastatin Calcium) 10 Mg Tab 10 Mg PO DAILY Bethanechol 25 Mg Tab 25 Mg PO QID Bentyl (Dicyclomine HCl) 10 Mg Cap 10 Mg PO TID PRN Lexapro (Escitalopram Oxalate) 20 Mg Tab 20 Mg PO DAILY Vitamin D-1000 (Cholecalciferol) 1,000 Unit Tab 50,000 Units PO WEEKLY Gabapentin 400 Mg Cap 400 Cap PO TID Vistaril (Hydroxyzine Pamoate) 25 Mg Cap 25 Mg PO BID PRN Albuterol Neb (Albuterol Sulfate) 2.5 Mg/3 Ml Neb 2.5 Mg NEB Q4HR NEB While awake Potassium Chloride ER (Potassium Chloride) 10 Meq Tab 10 Meq PO BID Omeprazole 20 Mg Tab 20 Mg PO DAILY Propranolol (Propranolol HCl) 20 Mg Tab 20 Mg PO Q12HR Requip (Ropinirole) 3 Mg Tab 3 Mg PO HS Trazodone (Trazodone HCl) 100 Mg Tablet 100 Mg PO HS Spiriva Handihaler (Tiotropium Inh) 18 Mcg Cap 18 Mcg INH DAILY 1 capsule = 18 mcg Aspirin 81 Mg Chew 81 Mg PO DAILY Abilify (Aripiprazole) 2 Mg Tab 2 Mg PO DAILY Fosamax (Alendronate Sodium) 70 Mg Tab 70 Mg PO Q7D Review of Systems General / Constitutional: No: Fever Eyes: No: Visual changes HENT: No: Headaches Cardiovascular: Positive: Tachycardia, No: Chest Pain or Discomfort Respiratory: No: Shortness of Breath Gastrointestinal: No: Abdominal Pain Genitourinary: No: Dysuria Musculoskeletal: No: Pain Skin: Positive Rash, Positive Itching, Positive Hives Neurologic: No: Weakness Psychiatric: No: Depression Endocrine: No: Polydipsia Hematologic/Lymphatic: No: Easy Bruising Physical Exam Narrative GENERAL: Well-nourished, well-developed patient in no apparent distress. SKIN: Focused skin assessment reveals diffuse urticarial rash on extremities and trunk, both front and back . Skin is Warm and dry. HEAD: Atraumatic. Normocephalic. EYES: Pupils equal and round. No scleral icterus. No injection or drainage. ENT: No nasal bleeding or discharge. Mucous membranes pink and moist. No swelling of lips or tongue or uvula NECK: Trachea midline. No JVD. CARDIOVASCULAR: Regular rate and rhythm. No murmur appreciated. Tachycardic 120 RESPIRATORY: No accessory muscle use. Clear to auscultation. Breath sounds equal bilaterally. GASTROINTESTINAL: Abdomen soft, non-tender, nondistended. Hepatic and splenic margins not palpable. MUSCULOSKELETAL: No obvious deformities. No clubbing. No cyanosis. No edema. NEUROLOGICAL: Awake and alert. No obvious cranial nerve deficits. Motor grossly within normal limits. Normal speech. PSYCHIATRIC: Appropriate mood and affect; insight and judgment normal. Data Data Last Documented VS Vital Signs Date Time Temp Pulse Resp B/P (MAP) Pulse Ox O2 Delivery O2 Flow Rate FiO2 08/26/17 14:34 123 100 Nasal Cannula 2.00 08/26/17 14:21 98.8 16 131/66 (87) Orders Orders Methylprednisolone So Succ Inj (Solumedr (08/26/17 14:45) Diphenhydramine Inj (Benadryl Inj) (08/26/17 14:45) Complete Blood Count With Diff (08/26/17 14:40) Basic Metabolic Panel (Bmp) (08/26/17 14:40) Forensic Document Examiner / Telemetry [id number].[email or web address] (08/26/17 14:40) Iv Access Insert/Monitor (08/26/17 14:40) Labs Laboratory Tests Test 08/26/17 14:45 White Blood Count 17.4 TH/MM3 Red Blood Count 5.51 MIL/MM3 Hemoglobin 14.6 GM/DL Hematocrit 45.6 % Mean Corpuscular Volume 82.8 FL Mean Corpuscular Hemoglobin 26.6 PG Mean Corpuscular Hemoglobin Concent 32.1 % Red Cell Distribution Width 13.0 % Platelet Count 267 TH/MM3 Mean Platelet Volume 8.2 FL Neutrophils (%) (Auto) 90.9 % Lymphocytes (%) (Auto) 2.2 % Monocytes (%) (Auto) 3.3 % Eosinophils (%) (Auto) 2.9 % Basophils (%) (Auto) 0.7 % Neutrophils # (Auto) 15.8 TH/MM3 Lymphocytes # (Auto) 0.4 TH/MM3 Monocytes # (Auto) 0.6 TH/MM3 Eosinophils # (Auto) 0.5 TH/MM3 Basophils # (Auto) 0.1 TH/MM3 CBC Comment AUTO DIFF Differential Comment AUTO DIFF CONFIRMED Blood Urea Nitrogen 7 MG/DL Creatinine 0.89 MG/DL Random Glucose 114 MG/DL Calcium Level 8.6 MG/DL Sodium Level 131 MEQ/L Potassium Level 4.2 MEQ/L Chloride Level 97 MEQ/L Carbon Dioxide Level 25.7 MEQ/L Anion Gap 8 MEQ/L Estimat Glomerular Filtration Rate 64 ML/MIN MDM Medical Decision Making Medical Screen Exam Complete: Yes Emergency Medical Condition: Yes Medical Record Reviewed: Yes Differential Diagnosis Allergic reaction, angioedema, anaphylaxis Narrative Course I have reviewed the patient's electronic medical record. Patient here earlier this month for flank pain and a negative CT IV placed I gave her IV solumedral and IV Benadryl No respiratory or airway involvement, holding off epinephrine She has sinus tachycardia on extended cardiac monitoring CBC shows some nonspecific leukocytosis with normal hemoglobin Metabolic profile shows minor abnormalities On recheck she has less itching but still has prominent hives I observed her for 2 hours and no progression Still has sinus tachycardia but improved I wrote her 5 days of prednisone and she will use Benadryl every 6 hours as needed and watch for sedation She will stop Her antibiotic Return if she worsens Diagnosis Primary Impression: Acute allergic reaction Qualified Codes: T78.40XA - Allergy, unspecified, initial encounter Additional Impression: Sinus tachycardia Additional Instructions: The patient was advised to follow up with their physician and return if they worsen. Use Benadryl every 6 hours as needed Stop antibiotic Med/Other Pt SpecificInfo: Prescription(s) given Scripts Prednisone (Prednisone) 20 Mg Tab 40 MG PO DAILY, #10 TAB 0 Refills Take 40 mg (2 tablets) daily for 5 days Prov: Stas Arshad MD 08/26/17 Disposition: 01 DISCHARGE HOME Condition: Stable Stas Arshad MD Aug 26, 2017 14:53
[2017-08-26 14:57] LABS: AUTOMATED NEUTROPHIL # 15.8 TH/MM3 (1.8-7.7); BASOPHIL # 0.1 TH/MM3 (0-0.2); BASOPHIL % 0.7 % (0.0-2.0); EOSINOPHIL # 0.5 TH/MM3 (0-0.4); EOSINOPHIL % 2.9 % (0.0-4.0); HEMATOCRIT 45.6 % (35.0-46.0); LYMPH % 2.2 % (9.0-44.0); LYMPHOCYTE # 0.4 TH/MM3 (1.0-4.8); MEAN CELL VOLUME 82.8 FL (80.0-100.0); MEAN CORPUSCULAR HEMOGLOBIN 26.6 PG (27.0-34.0); MEAN CORPUSCULAR HGB CONC 32.1 % (32.0-36.0); MONO % 3.3 % (0.0-8.0); NEUT % 90.9 % (16.0-70.0); PLATELET COUNT 267 TH/MM3 (150-450); RED BLOOD COUNT 5.51 MIL/MM3 (4.00-5.30); WHITE BLOOD COUNT 17.4 TH/MM3 (4.0-11.0)
[2017-08-26 14:59] LABS: POTASSIUM 4.2 MEQ/L (3.5-5.1)
[2017-08-26 15:02] LABS: BICARBONATE 25.7 MEQ/L (21.0-32.0)
[2017-08-26 15:06] LABS: HEMO FLAGS AUTO DIFF
[2017-08-26 15:39] LABS: SCAN/DIFF AUTO DIFF CONFIRMED
[2017-08-26 15:58] VITALS: BP 117/66; PULSE 117; RESP 16; O2SAT 94
[2017-08-26] MEDS ORDERED: PRED20 PO (15:58)
[2017-08-26] MEDS ORDERED: BENA25TA6 PO (16:09)
== END 2017-08-26 16:12 | disposition home or self-care (01) ==
LOC: PHED 14:17
DX: T78.40XA Allergy, unspecified, initial encounter (principal); R00.0 Tachycardia, unspecified; E78.00 Pure hypercholesterolemia, unspecified; G47.30 Sleep apnea, unspecified; F17.200 Nicotine dependence, unspecified, uncomplicated; Z79.82 Long term (current) use of aspirin; Z87.39 Personal history of other diseases of the musculoskeletal system and connective tissue; Z86.2 Personal history of diseases of the blood and blood-forming organs and certain disorders involving the immune mechanism; Z86.59 Personal history of other mental and behavioral disorders; Z87.09 Personal history of other diseases of the respiratory system; Z86.79 Personal history of other diseases of the circulatory system; Z86.718 Personal history of other venous thrombosis and embolism; Z87.19 Personal history of other diseases of the digestive system; Z86.69 Personal history of other diseases of the nervous system and sense organs
CPT/HCPCS: 80048; 85025; 96374; 96375; 99284; J1200; J2930

== ENCOUNTER 2017-08-31 20:31 | Inpatient (IN) | payer MEDICARE, MEDICAID ==
[~2017-08-31] VITALS: Ht 156.2 cm; Wt 83.1 kg
[~2017-08-31 20:31] MED LIST changes: +BENA25TA6 PO; -PERC5TAB12 PO; +PRED20 PO; -ULTR50TA5 PO
[2017-08-31 20:40] VITALS: BP 121/71; PULSE 109; RESP 20; TEMP 98.3; O2SAT 98
[2017-08-31] MEDS ORDERED: SODIUM CHLOR 0.9% 1000 ML INJ 1,000 ML IV SCH ×2 (20:57→22:05)
[2017-08-31] MEDS ORDERED: SODIUM CHLORIDE 0.9% FLUSH 10 ML FLUSH IV FLUSH PRN ×2 (21:00→23:15)
--- NOTE | 2017-08-31 21:04 | PD ---
HPI Chief Complaint: Dizziness Time Seen by Provider: 20:50 Travel History International Travel<30 days: No Contact w/Intl Traveler<30days: No Traveled to known affect area: No History of Present Illness HPI This is a 66-year-old female who presents via EMS for evaluation of lightheadedness, nausea and vomiting. She reports that she has been feeling lightheaded throughout the day. This evening she went to an extra neighbor's house and that 3 sips of wine cooler. She developed worsening lightheadedness as well as nausea, 2 episodes of emesis. Upon EMS arrival her blood pressure was 96/60. When she was standing her blood pressure went down to 60/40 and her lightheadedness increased. She has been given 1 L of IV fluids and her blood pressure is currently improved. She was given Zofran which resolved her nausea. She is currently continue to feel lightheaded but less so. She denies any chest pain, shortness of breath, palpitations, headache, focal weakness. She does endorse chronic upper abdominal pain which is not new or worsened today. She does also note that she was recently treated with an unknown antibiotic for UTI. She developed a diffuse rash shortly thereafter and was seen at [facility] on June 25 where she was diagnosed with hives. The unknown antibiotic was discontinued. She still has slight dysuria. She has completed the prednisone course that she was prescribed and she still has a mild diffuse pruritic rash. She has no other complaints at this time. PFSH Past Medical History Hx Anticoagulant Therapy: Yes (ASA) Arthritis: Yes Asthma: No Autoimmune Disease: Yes (RA) Blood Disorders: No Bipolar Disorder: Yes Anxiety: Yes Depression: Yes Heart Rhythm Problems: No Cancer: No Cardiac Catheterization: No Cardiovascular Problems: No High Cholesterol: Yes Chest Pain: No Congestive Heart Failure: No COPD: Yes Cerebrovascular Accident: Yes (TIA) Coronary Artery Disease: Yes Diabetes: No Diminished Hearing: No Deep Vein Thrombosis: Yes (PE) Endocrine: No Fibromyalgia: Yes GERD: Yes Headaches: Yes Hiatal Hernia: No Hypertension: No Immune Disorder: No Implanted Vascular Access Dvce: No Kidney Stones: No Musculoskeletal: Yes (fibromyalgia, arthritis) Neurologic: Yes (TIAs) Psychiatric: Yes Reproductive: No Respiratory: Yes Immunizations Current: Yes Migraines: Yes Myocardial Infarction: No Renal Failure: No Seizures: No Sickle Cell Disease: No Sleep Apnea: Yes Thyroid Disease: No Ulcer: No Tetanus Vaccination: > 5 Years Influenza Vaccination: Yes ?: Not Menopausal: Yes Ovarian Cysts: Yes Tubal Ligation: Yes (1975) Past Surgical History Abdominal Surgery: Yes AICD: No Appendectomy: Yes Cardiac Surgery: No Cholecystectomy: Yes Coronary Artery Bypass Graft: No Ear Surgery: No Endocrine Surgery: No Eye Surgery: No Genitourinary Surgery: No Gynecologic Surgery: Yes (right ovary removed) Hysterectomy: Yes Insulin Pump: No Joint Replacement: No Neurologic Surgery: Yes Oral Surgery: Yes (Complete teeth extraction) Pacemaker: No Thoracic Surgery: No Tonsillectomy: Yes Other Surgery: Yes (BL ankles, BL knees, pilonidal cyst) Family History Family Myocardial Infarction: Yes Social History Alcohol Use: No Tobacco Use: Yes (1 PPD) Substance Use: No Allergies-Medications (Allergen,Severity, Reaction): Coded Allergies: nitrofurantoin (Verified Allergy, Unknown, 08/31/17) RASH Reported Meds & Prescriptions Reported Meds & Active Scripts Active Benadryl Allergy (Diphenhydramine HCl) 25 Mg Tablet 25 Mg PO Q6HR PRN Prednisone 20 Mg Tab 40 Mg PO DAILY Take 40 mg (2 tablets) daily for 5 days Mucinex DM (Dextromethorphan-Guaifenesin) 30-600 Mg Tab 1 Tab PO BID PRN Reported Flexeril (Cyclobenzaprine HCl) 5 Mg Tab 5 Mg PO HS Ventolin Hfa 18 GM Inh (Albuterol Sulfate) 90 Mcg/Act Aer 2 Puff INH Q4-6H PRN Lipitor (Atorvastatin Calcium) 10 Mg Tab 10 Mg PO DAILY Bethanechol 25 Mg Tab 25 Mg PO QID Bentyl (Dicyclomine HCl) 10 Mg Cap 10 Mg PO TID PRN Lexapro (Escitalopram Oxalate) 20 Mg Tab 20 Mg PO DAILY Vitamin D-1000 (Cholecalciferol) 1,000 Unit Tab 50,000 Units PO WEEKLY Gabapentin 400 Mg Cap 400 Cap PO TID Vistaril (Hydroxyzine Pamoate) 25 Mg Cap 25 Mg PO BID PRN Albuterol Neb (Albuterol Sulfate) 2.5 Mg/3 Ml Neb 2.5 Mg NEB Q4HR NEB While awake Potassium Chloride ER (Potassium Chloride) 10 Meq Tab 10 Meq PO BID Omeprazole 20 Mg Tab 20 Mg PO DAILY Propranolol (Propranolol HCl) 20 Mg Tab 20 Mg PO Q12HR Requip (Ropinirole) 3 Mg Tab 3 Mg PO HS Trazodone (Trazodone HCl) 100 Mg Tablet 100 Mg PO HS Spiriva Handihaler (Tiotropium Inh) 18 Mcg Cap 18 Mcg INH DAILY 1 capsule = 18 mcg Aspirin 81 Mg Chew 81 Mg PO DAILY Abilify (Aripiprazole) 2 Mg Tab 2 Mg PO DAILY Fosamax (Alendronate Sodium) 70 Mg Tab 70 Mg PO Q7D Review of Systems Except as stated in HPI: all other systems reviewed are Neg Physical Exam Narrative GENERAL: Anxious appearing female who is in no acute distress. Her vital signs reviewed. SKIN: Warm and dry. There is a diffuse mild morbilliform rash noted. HEAD: Atraumatic. Normocephalic. EYES: Pupils equal and round. No scleral icterus. No injection or drainage. ENT: No nasal bleeding or discharge. Mucous membranes pink and moist. NECK: Trachea midline. No JVD. CARDIOVASCULAR: Regular rate and rhythm. No murmur appreciated. RESPIRATORY: No accessory muscle use. Clear to auscultation. Breath sounds equal bilaterally. GASTROINTESTINAL: Abdomen soft, epigastric tenderness to palpation without guarding. MUSCULOSKELETAL: No obvious deformities. No edema. NEUROLOGICAL: Awake and alert. No obvious cranial nerve deficits. Motor grossly within normal limits. Normal speech. PSYCHIATRIC: Appropriate mood and affect; insight and judgment normal. Data Data Last Documented VS Vital Signs Date Time Temp Pulse Resp B/P (MAP) Pulse Ox O2 Delivery O2 Flow Rate FiO2 08/31/17 21:29 Room Air 08/31/17 20:40 98.3 109 20 121/71 (88) 98 Orders Orders Complete Blood Count With Diff (08/31/17 20:57) Comprehensive Metabolic Panel (08/31/17 20:57) Urinalysis - C+S If Indicated (08/31/17 20:57) Iv Access Insert/Monitor (08/31/17 20:57) Ecg Monitoring (08/31/17 20:57) Oximetry (08/31/17 20:57) Sodium Chlor 0.9% 1000 Ml Inj (Ns 1000 M (08/31/17 20:57) Sodium Chloride 0.9% Flush (Ns Flush) (08/31/17 21:00) Electrocardiogram (08/31/17 20:57) Magnesium (Mg) (08/31/17 20:57) Creatine Kinase (Cpk) (08/31/17 20:57) Troponin I (08/31/17 20:57) Lipase (08/31/17 20:57) Orthostatic Vital Signs (08/31/17 20:57) Sodium Chlor 0.9% 1000 Ml Inj (Ns 1000 M (08/31/17 22:05) Chest, Single Ap (08/31/17 ) Urine Culture (08/31/17 21:43) Lactic Acid (08/31/17 22:30) Blood Culture (08/31/17 22:30) Ceftriaxone Inj (Rocephin Inj) (08/31/17 22:45) Ceftriaxone Inj (Rocephin Inj) (08/31/17 23:00) Azithromycin Inj (Zithromax Inj) (08/31/17 23:00) Labs Laboratory Tests Test 08/31/17 21:15 08/31/17 21:43 08/31/17 22:25 Blood Urea Nitrogen 22 MG/DL Creatinine 1.29 MG/DL Random Glucose 71 MG/DL Total Protein 7.9 GM/DL Albumin 3.8 GM/DL Calcium Level 9.6 MG/DL Magnesium Level 1.7 MG/DL Alkaline Phosphatase 97 U/L Aspartate Amino Transf (AST/SGOT) 12 U/L Alanine Aminotransferase (ALT/SGPT) 30 U/L Total Bilirubin 0.3 MG/DL Sodium Level 137 MEQ/L Potassium Level 4.0 MEQ/L Chloride Level 99 MEQ/L Carbon Dioxide Level 27.6 MEQ/L Anion Gap 10 MEQ/L Estimat Glomerular Filtration Rate 42 ML/MIN Total Creatine Kinase 34 U/L Troponin I LESS THAN 0.02 NG/ML Lipase 176 U/L Urine Color YELLOW Urine Turbidity CLEAR Urine pH 6.0 Urine Specific [place] 1.008 Urine Protein 30 mg/dL Urine Glucose (UA) NEG mg/dL Urine Ketones NEG mg/dL Urine Occult Blood NEG Urine Nitrite NEG Urine Bilirubin NEG Urine Urobilinogen LESS THAN 2.0 MG/DL Urine Leukocyte Esterase SMALL Urine RBC 2 /hpf Urine WBC 11 /hpf Urine Squamous Epithelial Cells <1 /hpf Urine Amorphous Sediment RARE Urine Mucus FEW /lpf Microscopic Urinalysis Comment CULTURE INDICATED White Blood Count 20.5 TH/MM3 Red Blood Count 5.25 MIL/MM3 Hemoglobin 14.4 GM/DL Hematocrit 44.2 % Mean Corpuscular Volume 84.1 FL Mean Corpuscular Hemoglobin 27.4 PG Mean Corpuscular Hemoglobin Concent 32.6 % Red Cell Distribution Width 13.8 % Platelet Count 271 TH/MM3 Mean Platelet Volume 7.2 FL CBC Comment AUTO DIFF MDM Medical Decision Making Medical Screen Exam Complete: Yes Emergency Medical Condition: Yes Medical Record Reviewed: Yes Interpretation(s) EKG sinus tachycardia with a rate of 119 Differential Diagnosis Orthostatic hypotension, dehydration, electrolyte abnormality, vasovagal reaction, arrhythmia, anaphylaxis Narrative Course The patient was placed in his usual monitoring pulse oximetry. A 12-lead EKG will be obtained. Additional liter of IV fluid boluses been ordered. Plan is for basic lab work, urinalysis, orthostatic vital signs, additional monitoring. Chest x-ray reveals CONCLUSION: Bilateral central and lower lung infiltrates, non-consolidative. Urinalysis reveals pyuria and the patient does have persistent dysuria. The patient's family member was able to track down the antibiotic that she was on and was Macrobid. Therefore this was added to her allergy list. The patient's tachycardia persists with her heart rate resting between 115 and 120 supine. Her WBC count is 20.5 and this may be secondary to corticosteroids. Lactic acid and blood cultures have been added on. Her BUN is 22 and creatinine is 1.29 with a GFR 42 which is decreased from her baseline as well. At this point in time the plan would be to admit the patient for persistent lightheadedness, tachycardia, SIRS, pneumonia, UTI, acute kidney injury. She was given 2 g Rocephin and 500 mg azithromycin IV. Procedures EKG Prior to Arrival: Yes Diagnosis Primary Impression: Lightheadedness Additional Impressions: SIRS (systemic inflammatory response syndrome) Urinary tract infection Qualified Codes: N39.0 - Urinary tract infection, site not specified Pneumonia Qualified Codes: J18.9 - Pneumonia, unspecified organism Acute kidney injury Admitting Information Admitting Physician Requests: it Jae Guerrero Aug 31, 2017 21:04
[2017-08-31 22:00] LABS: ALT (GPT) 30 U/L (10-53)
[2017-08-31 22:05] LABS: ALKALINE PHOSPHATASE 97 U/L (45-117); ANION GAP 10 MEQ/L (5-15); AST (GOT) 12 U/L (15-37); BICARBONATE 27.6 MEQ/L (21.0-32.0); BLOOD UREA NITROGEN 22 MG/DL (7-18); CHLORIDE 99 MEQ/L (98-107); GLOMERULAR FILTRATION RATE 42 ML/MIN (>89); MAGNESIUM 1.7 MG/DL (1.5-2.5); SODIUM (NA) 137 MEQ/L (136-145); TOTAL BILIRUBIN ADULT 0.3 MG/DL (0.2-1.0)
[2017-08-31 22:15] LABS: CREATINE KINASE 34 U/L (26-192)
[2017-08-31 22:23] LABS: BLOOD, URINE NEG (NEG); COMMENT (UR) CULTURE INDICATED; CULTURE IF INDICATED CULTURE INDICATED; GLUCOSE,URINE NEG (NEG); KETONE, URINE NEG (NEG); MUCUS URINE FEW /lpf (OCC); NITRITE,URINE NEG (NEG); SQUAMOUS EPITHELIAL CELL URINE <1 /hpf (0-5); URINE COLOR YELLOW (YELLW/STRAW)
[2017-08-31 22:37] LABS: HEMATOCRIT 44.2 % (35.0-46.0); MEAN CELL VOLUME 84.1 FL (80.0-100.0); MEAN CORPUSCULAR HEMOGLOBIN 27.4 PG (27.0-34.0); MEAN CORPUSCULAR HGB CONC 32.6 % (32.0-36.0); PLATELET COUNT 271 TH/MM3 (150-450); RED BLOOD COUNT 5.25 MIL/MM3 (4.00-5.30); RED CELL DISTRIBUTION WIDTH 13.8 % (11.6-17.2); WHITE BLOOD COUNT 20.5 TH/MM3 (4.0-11.0)
[2017-08-31 22:39] LABS: HEMO FLAGS AUTO DIFF
[2017-08-31] MEDS ORDERED: cefTRIAXone INJ 1,000 MG in SODIUM CHLORIDE 0.9% INJ 100 ML IV ONE (22:45)
--- NOTE | 2017-08-31 22:47 | RADRPT ---
EXAM DATE/TIME: 08/31/2017 22:20 [place] COMPARISON: CHEST SINGLE AP, July 10, 2017, 15:37. INDICATIONS : Chest pain MEDICAL HISTORY : Chronic obstructive pulmonary disease. Gastroesophageal reflux disease. Deep venousthrombosis.Cerebro vascual accident. Hypertension SURGICAL HISTORY : Tubal ligation. Hysterectomy. ENCOUNTER: Initial ACUITY: 1 day PAIN SCORE: 7/10 LOCATION: chest FINDINGS: Patchy non-consolidative infiltrates are present in the perihilar region and infrahilar region bilate rally. Both hemidiaphragms are well delineated. The heart is normal size. CONCLUSION: Bilateral central and lower lung infiltrates, non-consolidative. Cesar Castaneda MD on August 31, 2017 at 22:46 Board Certified Radiologist. This report was verified electronically.
[2017-08-31] MEDS ORDERED: AZITHROMYCIN INJ 500 MG in SODIUM CHLOR 0.9% 250 ML INJ 250 ML IV ONE (23:00)
[2017-08-31] MEDS ORDERED: cefTRIAXone INJ 2,000 MG in SODIUM CHLORIDE 0.9% INJ 100 ML IV ONE (23:00)
[2017-08-31] MEDS ORDERED: MAGNESIUM HYDROXIDE SUSP 30 ML CUP PO PRN (23:15)
[2017-08-31] MEDS ORDERED: ACETAMINOPHEN 325 MG TAB PO PRN (23:15)
[2017-08-31] MEDS ORDERED: ONDANSETRON HCL 4 MG/2 ML VIAL IVP PRN (23:15)
[2017-08-31] MEDS ORDERED: MORPHINE SULFATE 4 MG/ML INJ IV PUSH PRN (23:15)
[2017-08-31] MEDS ORDERED: BISACODYL 10 MG SUPP RECTAL PRN (23:15)
[2017-08-31] MEDS ORDERED: SENNOSIDES 8.6 MG TAB PO PRN (23:15)
[2017-08-31] MEDS ORDERED: LACTULOSE SYRUP 20 GM/30 ML CUP PO PRN (23:15)
--- NOTE | 2017-08-31 23:18 | HHI.HP ---
[facility] Unknown Admission Diagnosis ARF, UTI, pneumonia, lightheadedness, SIRS Diagnoses: (1) SIRS (systemic inflammatory response syndrome) Diagnosis: Principal (2) UTI (urinary tract infection) Diagnosis: Principal (3) PNA (pneumonia) Diagnosis: Principal (4) RAYSA (acute kidney injury) Diagnosis: Principal (5) Tobacco abuse Diagnosis: Principal Travel History International Travel<30 Days: No Contact w/Intl Traveler <30 Da: No Traveled to Known Affected Are: No History of Present Illness This is a 66-year-old female with a PMH of HTN, Rheumatoid Arthritis, Anxiety, Depression, Bipolar Disorder, CAD, h/o TIA, Fibromyalgia and Tobacco Abuse who was brought to the ER by EMS secondary to c/o dizziness in addition to few episodes of nausea/vomiting. Denies fever, chills or diarrhea. Per pt she was at a friend's house having few drinks when she had sudden onset of dizziness. Upon EMS arrival, pt noted to have BP 60's systolic, s/p IVF w/ improvement. BP 121/71, HR 109, O2 sat 98% on RA, Afebrile. WBC 20.5. Creatinine 1.29, produces 0.89 on 08/26/17. Lactic Acid 2.3. Troponin negative. UA positive for UTI. CXR w/ patchy infiltrates bilaterally. S/p Blood/Urine Cultures, Rocephin/Zithr in ER. Of note, pt w/ multiple ER presentations recently, 08/13/17 seen in ER for c/o flank pain and cough, d/c'd w/ Mucinex and Ultram. Seen again on 08/14/17 for c/ o flank pain, d/c'd w/ Percocet. States she was started on Macrobid for UTI as outpatient and had subsequent rash, seen again in ER on 08/26/17 for allergic reaction/rash and d/c'd on Prednisone 40mg po x5 days. Review of Systems Except as stated in HPI: all other systems reviewed are Neg ROS: 14 point review of systems otherwise negative. Past Family Social History Past Medical History PMH: HTN, Rheumatoid Arthritis, Anxiety, Depression, Bipolar Disorder, CAD, h/ o TIA, Fibromyalgia and Tobacco Abuse Past Surgical History PAST SURGICAL HISTORY: Appendectomy, Cholecystectomy, Right Oophorectomy, Dental Extraction, Tonsillectomy, Bilateral Knee Surgery, Bilateral Ankle Surgery, Pilonidal Cyst Allergies: Coded Allergies: nitrofurantoin (Verified Allergy, Unknown, 08/31/17) RASH Family History PAST FAMILY HISTORY: Reviewed. No h/o DM or CAD Social History PAST SOCIAL HISTORY: Negative for alcohol or drugs. Smokes 1ppd. Physical Exam Vital Signs Vital Signs Date Time Temp Pulse Resp B/P (MAP) Pulse Ox O2 Delivery O2 Flow Rate FiO2 08/31/17 21:29 Room Air 08/31/17 20:40 98.3 109 20 121/71 (88) 98 Physical Exam PE: GENERAL: Middle-aged white female in no acute distress. HEENT: PERRLA, EOMI. No scleral icterus or conjunctival pallor. No lid lag or facial droop. CARDIOVASCULAR: Regular rate and rhythm. No obvious murmurs to auscultation. No chest tenderness to palpation. RESPIRATORY: No obvious rhonchi or wheezing. Clear to auscultation. Breath sounds equal bilaterally. GASTROINTESTINAL: Abdomen soft, non-tender, nondistended. BS normal. MUSCULOSKELETAL: Extremities without clubbing, cyanosis, or edema. No obvious deformities. Diffuse rash NEUROLOGICAL: Awake, alert and oriented x4. No focal neurologic deficits. Moving both upper and lower extremities spontaneously. Laboratory Laboratory Tests Test 08/31/17 21:15 08/31/17 21:43 08/31/17 22:25 08/31/17 22:30 Blood Urea Nitrogen 22 Creatinine 1.29 Random Glucose 71 Total Protein 7.9 Albumin 3.8 Calcium Level 9.6 Magnesium Level 1.7 Alkaline Phosphatase 97 Aspartate Amino Transf (AST/SGOT) 12 Alanine Aminotransferase (ALT/SGPT) 30 Total Bilirubin 0.3 Sodium Level 137 Potassium Level 4.0 Chloride Level 99 Carbon Dioxide Level 27.6 Anion Gap 10 Estimat Glomerular Filtration Rate 42 Total Creatine Kinase 34 Troponin I LESS THAN 0.02 Lipase 176 Urine Color YELLOW Urine Turbidity CLEAR Urine pH 6.0 Urine Specific [place] 1.008 Urine Protein 30 Urine Glucose (UA) NEG Urine Ketones NEG Urine Occult Blood NEG Urine Nitrite NEG Urine Bilirubin NEG Urine Urobilinogen LESS THAN 2.0 Urine Leukocyte Esterase SMALL Urine RBC 2 Urine WBC 11 Urine Squamous Epithelial Cells <1 Urine Amorphous Sediment RARE Urine Mucus FEW Microscopic Urinalysis Comment CULTURE INDICATED White Blood Count 20.5 Red Blood Count 5.25 Hemoglobin 14.4 Hematocrit 44.2 Mean Corpuscular Volume 84.1 Mean Corpuscular Hemoglobin 27.4 Mean Corpuscular Hemoglobin Concent 32.6 Red Cell Distribution Width 13.8 Platelet Count 271 Mean Platelet Volume 7.2 CBC Comment AUTO DIFF Date/Time Source Procedure Growth Status 08/31/17 22:52 Blood Peripheral Aerobic Blood Culture Pending Received 08/31/17 22:52 Blood Peripheral Anaerobic Blood Culture Pending Received 08/31/17 21:43 Urine Random Urine Urine Culture Pending Received Result Diagram: 08/31/17222408/31/172114 Sada VTE Risk Assessment Sada VTE Risk Assessment: No/Low Risk (score <= 1) Caprini Risk Assessment Model Point Value = 1 Point Value = 2 Point Value = 3 Point Value = 5 Age 41-60 Minor surgery BMI > 25 kg/m2 Swollen legs Varicose veins or History of unexplained or recurrent spontaneous Oral contraceptives or hormone replacement Sepsis (< 1 month) Serious lung disease, including pneumonia (< 1 month) Abnormal pulmonary function Acute myocardial infarction Congestive heart failure (< 1 month) History of inflammatory bowel disease Medical patient at bed rest Age 61-74 Arthroscopic surgery Major open surgery (> 45 min) Laparoscopic surgery (> 45 min) Malignancy Confined to bed (> 72 hours) Immobilizing plaster cast Central venous access Age >= 75 History of VTE Family history of VTE Factor V Leiden Prothrombin [id number] Lupus anticoagulant Anticardiolipin antibodies Elevated serum homocysteine Heparin-induced thrombocytopenia Other congenital or acquired thrombophilia Stroke (< 1 month) Elective arthroplasty Hip, pelvis, or leg fracture Acute spinal cord injury (< 1 month) Prophylaxis Regimen Total Risk Factor Score Risk Level Prophylaxis Regimen 0-1 Low Early ambulation 2 Moderate Order ONE of the following: *Sequential Compression Device (SCD) *Heparin 5000 units SQ BID 3-4 Higher Order ONE of the following medications: *Heparin 5000 units SQ TID *Enoxaparin/Lovenox 40 mg SQ daily (WT < 150 kg, CrCl > 30 mL/min) *Enoxaparin/Lovenox 30 mg SQ daily (WT < 150 kg, CrCl > 10-29 mL/min) *Enoxaparin/Lovenox 30 mg SQ BID (WT < 150 kg, CrCl > 30 mL/min) AND/OR *Sequential Compression Device (SCD) 5 or more Highest Order ONE of the following medications: *Heparin 5000 units SQ TID (Preferred with Epidurals) *Enoxaparin/Lovenox 40 mg SQ daily (WT < 150 kg, CrCl > 30 mL/min) *Enoxaparin/Lovenox 30 mg SQ daily (WT < 150 kg, CrCl > 10-29 mL/min) *Enoxaparin/Lovenox 30 mg SQ BID (WT < 150 kg, CrCl > 30 mL/min) AND *Sequential Compression Device (SCD) Assessment and Plan Problem List: (1) SIRS (systemic inflammatory response syndrome) ICD Code: R65.10 - Systemic inflammatory response syndrome (SIRS) of non- infectious origin without acute organ dysfunction Status: Acute (2) UTI (urinary tract infection) ICD Code: N39.0 - Urinary tract infection, site not specified (3) RAYSA (acute kidney injury) ICD Code: N17.9 - Acute kidney failure, unspecified (4) PNA (pneumonia) ICD Code: J18.9 - Pneumonia, unspecified organism (5) Tobacco abuse ICD Code: Z72.0 - Tobacco use Assessment and Plan A/P: 1. SIRS: HR 109, WBC 20.5, Source-PNA/UTI. S/p Blood/Urine Cultures, Rocephin /Zithro in ER, will follow up cultures, continue w/ IV Abx. 2. UTI: U/a w/ UTI. Failed outpatient therapy, recently on Macrobid as outpatient for UTI. S/p Rocephin in ER, will continue w/ IV Abx, IVF 3. PNA: CXR w/ patchy infiltrates bilaterally, images reviewed by me. C/o ongoing cough for approx 1 wk. Continue w/ IV Abx, DuoNeb prn if needed. 4. Tobacco Abuse: Pt counselled. NicoDerm prn if needed. 5. Bipolar Disorder: Stable. Resume home medications. 6. DVT Prophylaxis: SCD/Teds. 7. Social work for d/c planning as needed. 8. Case discussed w/ ER physician at length. Physician Certification 2 Midnight Certification Type: Admission for Inpatient Services Order for Inpatient Services The services are ordered in accordance with Medicare regulations or non- Medicare payer requirements, as applicable. In the case of services not specified as inpatient-only, they are appropriately provided as inpatient services in accordance with the 2-midnight benchmark. Estimated LOS (days): 2 days is the estimated time the patient will need to remain in the hospital, assuming treatment plan goals are met and no additional complications. Post-Hospital Plan: Not yet determined Nicci Russell MD Aug 31, 2017 23:17
[2017-08-31 23:52] VITALS: PULSE 104
[2017-09-01] VITALS (11 sets, daily range): BP systolic 89–133; BP diastolic 51–66; PULSE 91–110; RESP 16–19; TEMP 97.4–98.5; O2SAT 90–95
[2017-09-01] MEDS: ACETAMINOPHEN/HYDROcodone 325 MG/5 MG TAB PO PRN ×3 (00:03→17:40)
[2017-09-01 00:11] LABS: BANDS 21 % (0-6); METAMYELOCYTES 1 % (0-1); NEUTROPHIL # MANUAL DIFF 20.5 TH/MM3 (1.8-7.7); POLYS (SEG NEUTROPHILS) 78 % (16-70); WBC DIFF SAMPLE 100
[2017-09-01 00:12] LABS: DOHLE BODIES PRESENT (NONE SEEN); PLATELET ESTIMATE SMEAR NORMAL (NORMAL); PLATELET MORPHOLOGY NORMAL (NORMAL); SCAN/DIFF FINAL DIFF MANUAL; TOXIC VACUOLATION PRESENT (NONE SEEN)
[2017-09-01] MEDS ORDERED: RESP: ALBUTEROL 2.5 MG/IPRATROPIUM 0.5 MG NEB (PRN) NEB (00:15)
[2017-09-01] MEDS: SODIUM CHLOR 0.9% 1000 ML INJ 1,000 ML IV SCH ×3 (02:18→21:35)
[2017-09-01] MEDS: SODIUM CHLORIDE 0.9% FLUSH 10 ML FLUSH IV FLUSH SCH ×2 (08:21→20:44)
[2017-09-01] MEDS: ATORVASTATIN 10 MG TAB PO SCH (08:21)
[2017-09-01] MEDS: DOCUSATE SODIUM 50 MG/SENNA 8.6 MG TAB PO SCH ×2 (08:21→20:44)
[2017-09-01 08:37] LABS: AUTOMATED NEUTROPHIL # 30.4 TH/MM3 (1.8-7.7); BASOPHIL # 0.1 TH/MM3 (0-0.2); BASOPHIL % 0.3 % (0.0-2.0); EOSINOPHIL # 2.6 TH/MM3 (0-0.4); EOSINOPHIL % 7.6 % (0.0-4.0); LYMPH % 1.3 % (9.0-44.0); LYMPHOCYTE # 0.5 TH/MM3 (1.0-4.8); MEAN CELL VOLUME 83.2 FL (80.0-100.0); MEAN CORPUSCULAR HEMOGLOBIN 27.2 PG (27.0-34.0); MEAN CORPUSCULAR HGB CONC 32.6 % (32.0-36.0); MONO % 2.1 % (0.0-8.0); NEUT % 88.7 % (16.0-70.0); PLATELET COUNT 314 TH/MM3 (150-450); RED BLOOD COUNT 5.04 MIL/MM3 (4.00-5.30); RED CELL DISTRIBUTION WIDTH 13.8 % (11.6-17.2); WHITE BLOOD COUNT 34.3 TH/MM3 (4.0-11.0)
[2017-09-01 08:39] LABS: HEMO FLAGS AUTO DIFF
[2017-09-01 09:08] LABS: ALKALINE PHOSPHATASE 62 U/L (45-117); ALT (GPT) 16 U/L (10-53); ANION GAP 8 MEQ/L (5-15); AST (GOT) 4 U/L (15-37); BICARBONATE 23.9 MEQ/L (21.0-32.0); BLOOD UREA NITROGEN 19 MG/DL (7-18); CHLORIDE 107 MEQ/L (98-107); GLOMERULAR FILTRATION RATE 49 ML/MIN (>89); POTASSIUM 4.2 MEQ/L (3.5-5.1); SODIUM (NA) 139 MEQ/L (136-145); TOTAL BILIRUBIN ADULT 0.3 MG/DL (0.2-1.0)
[2017-09-01 09:45] LABS: BANDS 27 % (0-6); EOSINOPHILS 6 % (0-4); NEUTROPHIL # MANUAL DIFF 31.6 TH/MM3 (1.8-7.7); PLATELET ESTIMATE SMEAR NORMAL (NORMAL); PLATELET MORPHOLOGY NORMAL (NORMAL); POLYS (SEG NEUTROPHILS) 65 % (16-70); SCAN/DIFF FINAL DIFF MANUAL; WBC DIFF SAMPLE 100
[2017-09-01 09:46] LABS: TOXIC VACUOLATION PRESENT (NONE SEEN)
--- NOTE | 2017-09-01 09:54 | HHI.PR ---
Subjective Remarks This is a pleasant 66 y/o Female with Hypertension, Rheumatoid Arthritis Anxiety disorder, Depression, Bipolar disorder, CAD, TIA, Brought in due to Dizziness and Nausea, vomit, Hypotensive when EMS Arrived , UTI on UA and CXR w/ patchy infiltrates bilaterally. S/p Blood/Urine Cultures, Rocephin/Zithr in ER. Of note, pt w/ multiple ER presentations recently, 08/13/17 seen in ER for c/o flank pain and cough, d/c'd w/ Mucinex and Ultram. Seen again on 08/14/17 for c/o flank pain, d/c'd w/ Percocet. States she was started on Macrobid for UTI as outpatient and had subsequent rash, seen again in ER on 08/26/17 for allergic reaction/rash and d/c' d on Prednisone 40mg po x5 days. 09/01: Seen in her bedroom admitted for management of Pneumonia, she is tobacco dependent patient and accept to use Nicotine Patch, at this time wearing nasal Cannula, no nausea, vomit or diarrhea. Objective Vital Signs Date Time Temp Pulse Resp B/P (MAP) Pulse Ox O2 Delivery O2 Flow Rate FiO2 09/01/17 08:19 97.6 102 16 109/65 (80) 95 09/01/17 05:30 97.6 101 19 102/59 (73) 93 09/01/17 03:00 102 09/01/17 02:50 Nasal Cannula 3.00 09/01/17 02:33 92/60 (71) 09/01/17 02:28 97.7 109 19 89/51 (64) 94 08/31/17 23:52 104 08/31/17 21:29 Room Air 08/31/17 20:40 98.3 109 20 121/71 (88) 98 I/O 08/31/17 08/31/17 08/31/17 09/01/17 09/01/17 09/01/17 07:00 15:00 23:00 07:00 15:00 23:00 Intake Total 2470 ml Balance 2470 ml Intake Oral 120 ml IV Total 2350 ml # Voids 1 Result Diagram: 09/01/17 0810 09/01/17 0810 Imaging EXAM DATE/TIME: 08/31/2017 22:20 [place] COMPARISON: CHEST SINGLE AP, July 10, 2017, 15:37. INDICATIONS : Chest pain MEDICAL HISTORY : Chronic obstructive pulmonary disease. Gastroesophageal reflux disease. Deep venousthrombosis.Cerebrovascual accident. Hypertension SURGICAL HISTORY : Tubal ligation. Hysterectomy. ENCOUNTER: Initial ACUITY: 1 day PAIN SCORE: 7/10 LOCATION: chest FINDINGS: Patchy non-consolidative infiltrates are present in the perihilar region and infrahilar region bilaterally. Both hemidiaphragms are well delineated. The heart is normal size. CONCLUSION: Bilateral central and lower lung infiltrates, non-consolidative. Procedures None Other Results Laboratory Tests Test 08/31/17 21:15 08/31/17 21:43 08/31/17 22:25 09/01/17 08:10 Blood Urea Nitrogen 22 MG/DL 19 MG/DL Creatinine 1.29 MG/DL 1.11 MG/DL Random Glucose 71 MG/DL 111 MG/DL Total Protein 7.9 GM/DL 5.3 GM/DL Albumin 3.8 GM/DL 2.2 GM/DL Calcium Level 9.6 MG/DL 7.7 MG/DL Magnesium Level 1.7 MG/DL Alkaline Phosphatase 97 U/L 62 U/L Aspartate Amino Transf (AST/SGOT) 12 U/L 4 U/L Alanine Aminotransferase (ALT/SGPT) 30 U/L 16 U/L Total Bilirubin 0.3 MG/DL 0.3 MG/DL Sodium Level 137 MEQ/L 139 MEQ/L Potassium Level 4.0 MEQ/L 4.2 MEQ/L Chloride Level 99 MEQ/L 107 MEQ/L Carbon Dioxide Level 27.6 MEQ/L 23.9 MEQ/L Total Creatine Kinase 34 U/L Troponin I LESS THAN 0.02 NG/ML Lipase 176 U/L Urine Color YELLOW Urine Turbidity CLEAR Urine pH 6.0 Urine Specific [place] 1.008 Urine Protein 30 mg/dL Urine Glucose (UA) NEG mg/dL Urine Ketones NEG mg/dL Urine Occult Blood NEG Urine Nitrite NEG Urine Bilirubin NEG Urine Urobilinogen LESS THAN 2.0 MG/DL Urine Leukocyte Esterase SMALL Urine RBC 2 /hpf Urine WBC 11 /hpf Urine Squamous Epithelial Cells <1 /hpf Urine Amorphous Sediment RARE Urine Mucus FEW /lpf Microscopic Urinalysis Comment CULTURE INDICATED Metamyelocytes 1 % Dohle Bodies PRESENT Red Cell Morphology Comment NORMAL White Blood Count 34.3 TH/MM3 Red Blood Count 5.04 MIL/MM3 Hemoglobin 13.7 GM/DL Hematocrit 42.0 % Mean Corpuscular Volume 83.2 FL Mean Corpuscular Hemoglobin 27.2 PG Mean Corpuscular Hemoglobin Concent 32.6 % Red Cell Distribution Width 13.8 % Platelet Count 314 TH/MM3 Mean Platelet Volume 7.5 FL Neutrophils (%) (Auto) 88.7 % Lymphocytes (%) (Auto) 1.3 % Monocytes (%) (Auto) 2.1 % Eosinophils (%) (Auto) 7.6 % Basophils (%) (Auto) 0.3 % Neutrophils # (Auto) 30.4 TH/MM3 Lymphocytes # (Auto) 0.5 TH/MM3 Monocytes # (Auto) 0.7 TH/MM3 Eosinophils # (Auto) 2.6 TH/MM3 Basophils # (Auto) 0.1 TH/MM3 CBC Comment AUTO DIFF Differential Total Cells Counted 100 Neutrophils % (Manual) 65 % Band Neutrophils % 27 % Lymphocytes % 2 % Eosinophils % 6 % Neutrophils # (Manual) 31.6 TH/MM3 Differential Comment FINAL DIFF MANUAL Toxic Vacuolation PRESENT Platelet Estimate NORMAL Platelet Morphology Comment NORMAL Anion Gap 8 MEQ/L Estimat Glomerular Filtration Rate 49 ML/MIN Lactic Acid Level 1.9 mmol/L Objective Remarks PE: Obesity, no acute distress. GENERAL: Middle-aged white female in no acute distress. HEENT: PERRLA, EOMI. No scleral icterus or conjunctival pallor. No lid lag or facial droop. CARDIOVASCULAR: Regular rate and rhythm. No obvious murmurs to auscultation. No chest tenderness to palpation. RESPIRATORY: No obvious rhonchi or wheezing. Clear to auscultation. Breath sounds equal bilaterally. GASTROINTESTINAL: Abdomen soft, non-tender, nondistended. BS normal. MUSCULOSKELETAL: Extremities without clubbing, cyanosis, or edema. No obvious deformities. Diffuse rash NEUROLOGICAL: Awake, alert and oriented x4. No focal neurologic deficits. Moving both upper and lower extremities spontaneously. Medications and IVs Current Medications Medications (Trade) Dose Ordered Sig/Tasha Route Start Time Stop Time Status Last Admin (NS Flush) 2 ml UNSCH PRN IV FLUSH 08/31/17 21:00 Ceftriaxone Sodium 1000 mg/ Sodium Chloride 100 ml @ 200 mls/hr Q24H IV 09/01/17 23:00 Azithromycin 500 mg/Sodium Chloride 250 ml @ 250 mls/hr Q24H IV 09/01/17 22:00 Sodium Chloride 1,000 ml @ 100 mls/hr Q10H IV 08/31/17 23:14 09/01/17 02:18 (NS Flush) 2 ml UNSCH PRN IV FLUSH 08/31/17 23:15 (NS Flush) 2 ml BID IV FLUSH 09/01/17 09:00 (Zofran Inj) 4 mg Q6H PRN IVP 08/31/17 23:15 (Tylenol) 650 mg Q6H PRN PO 08/31/17 23:15 ([place] 5-325 Mg) 1 tab Q4H PRN PO 08/31/17 23:15 09/01/17 08:21 (Morphine Inj) 2 mg Q3H PRN IV PUSH 08/31/17 23:15 (Meeta-Colace) 1 tab BID PO 09/01/17 09:00 09/01/17 08:21 (Milk Of Magnesia Liq) 30 ml Q12H PRN PO 08/31/17 23:15 (Senokot) 17.2 mg Q12H PRN PO 08/31/17 23:15 (Dulcolax Supp) 10 mg DAILY PRN RECTAL 08/31/17 23:15 (Lactulose Liq) 30 ml DAILY PRN PO 08/31/17 23:15 (Abilify) 2 mg DAILY PO 09/01/17 09:00 (Lipitor) 10 mg DAILY PO 09/01/17 09:00 09/01/17 08:21 (Vistaril) 25 mg BID PRN PO 08/31/17 23:15 (Desyrel) 100 mg HS PO 09/01/17 21:00 (Duoneb Neb) 1 ampule Q4HR NEB PRN NEB 09/01/17 00:15 (Flu (Quadrivalent) Vaccine Inj) 0.5 ml ONCE ONCE IM 09/02/17 10:00 09/02/17 10:01 A/P Assessment and Plan 1. SIRS: HR 109, WBC 20.5, Source-PNA/UTI. S/p Blood/Urine Cultures, Rocephin /Zithro in ER, will follow up cultures, continue w/ IV Abx. Blood cultures negative so far, and Leukocytosis she was receiving Steroids previous to this admission. 2. UTI: U/a w/ UTI. Failed outpatient therapy, recently on Macrobid as outpatient for UTI. S/p Rocephin in ER, will continue w/ IV Abx, IVF 3. PNA: CXR w/ patchy infiltrates bilaterally, images reviewed by me. C/o ongoing cough for approx 1 wk. Continue w/ IV Abx, DuoNeb prn if needed. 4. Tobacco Abuse: Pt counselled. NicoDerm started, 5. Bipolar Disorder: Stable. Resume home medications. 6. Obesity strongly recommended diet and exercise as outpatient. DVT Prophylaxis: SCD/Teds. Social work for d/c planning as needed. Discharge Planning Expected in one to two days. Ky Lane MD Sep 01, 2017 09:54
[2017-09-01] MEDS ORDERED: CEFEPIME INJ 2,000 MG in SODIUM CHLORIDE 0.9% INJ 100 ML IV SCH (10:15)
[2017-09-01] MEDS ORDERED: SODIUM CHLORID 0.9% 500 ML INJ 500 ML IV ONE (11:00)
[2017-09-01] MEDS ORDERED: NICOTINE 14 MG/24 HR PATCH T-DERMAL SCH (11:00)
[2017-09-01] MEDS: CEFEPIME INJ 2,000 MG in SODIUM CHLORIDE 0.9% INJ 100 ML IV SCH (12:18)
[2017-09-01] MEDS: ARIPiprazole 2 MG TAB PO SCH (12:24)
[2017-09-01] MEDS: RESP: ALBUTEROL 2.5 MG/IPRATROPIUM 0.5 MG NEB (SCH) NEB (16:00)
--- NOTE | 2017-09-01 19:29 | EKG ---
Date Performed: 08/31/2017 Time Performed: 21:40:31 PTAGE: 66 years EKG: SINUS TACHYCARDIA LOW QRS VOLTAGE IN PRECORDIAL LEADS INCOMPLETE RIGHT BUNDLE BRANCH BLOCK LEFT ANTERIOR FASCICULAR BLOCK LEFT VENTRICULAR HYPERTROPHY AND ST-T CHANGE ABNORMAL ECG NO PREVIOUS TRACING DOCTOR: Ryan Brock Interpretating Date/Time 09/01/2017 19:27:49
[2017-09-01] MEDS: traZODone HCL 100 MG TAB PO SCH (20:44)
[2017-09-01] MEDS: guaiFENesin E.R. 600 MG TAB PO SCH (20:44)
[2017-09-01] MEDS: LORazepam 0.5 MG TAB PO PRN (21:34)
[2017-09-01] MEDS: AZITHROMYCIN INJ 500 MG in SODIUM CHLOR 0.9% 250 ML INJ 250 ML IV SCH (21:34)
[2017-09-01] MEDS ORDERED: cefTRIAXone INJ 1,000 MG in SODIUM CHLORIDE 0.9% INJ 100 ML IV SCH (23:00)
[2017-09-02] VITALS (11 sets, daily range): BP systolic 117–161; BP diastolic 59–76; PULSE 86–107; RESP 16–18; TEMP 97.7–97.9; O2SAT 92–97
[2017-09-02] MEDS: RESP: ALBUTEROL 2.5 MG/IPRATROPIUM 0.5 MG NEB (SCH) NEB ×6 (04:10→20:00)
[2017-09-02] MEDS: hydrOXYzine PAMOATE 25 MG CAP PO PRN ×2 (04:48→20:43)
[2017-09-02] MEDS: SODIUM CHLOR 0.9% 1000 ML INJ 1,000 ML IV SCH ×2 (05:14→16:26)
[2017-09-02] MEDS: ATORVASTATIN 10 MG TAB PO SCH (08:07)
[2017-09-02] MEDS: guaiFENesin E.R. 600 MG TAB PO SCH ×2 (08:07→20:42)
[2017-09-02] MEDS: ARIPiprazole 2 MG TAB PO SCH (08:07)
[2017-09-02] MEDS: DOCUSATE SODIUM 50 MG/SENNA 8.6 MG TAB PO SCH ×2 (08:07→20:43)
[2017-09-02] MEDS: LORazepam 0.5 MG TAB PO PRN ×2 (08:08→17:11)
[2017-09-02] MEDS: ACETAMINOPHEN/HYDROcodone 325 MG/5 MG TAB PO PRN ×4 (08:08→22:16)
[2017-09-02] MEDS: SODIUM CHLORIDE 0.9% FLUSH 10 ML FLUSH IV FLUSH SCH ×2 (08:09→20:43)
--- NOTE | 2017-09-02 09:20 | HHI.PR ---
Subjective Remarks This is a pleasant 66 y/o Female with Hypertension, Rheumatoid Arthritis Anxiety disorder, Depression, Bipolar disorder, CAD, TIA, Brought in due to Dizziness and Nausea, vomit, Hypotensive when EMS Arrived , UTI on UA and CXR w/ patchy infiltrates bilaterally. S/p Blood/Urine Cultures, Rocephin/Zithr in ER. Of note, pt w/ multiple ER presentations recently, 08/13/17 seen in ER for c/o flank pain and cough, d/c'd w/ Mucinex and Ultram. Seen again on 08/14/17 for c/o flank pain, d/c'd w/ Percocet. States she was started on Macrobid for UTI as outpatient and had subsequent rash, seen again in ER on 08/26/17 for allergic reaction/rash and d/c' d on Prednisone 40mg po x5 days. 09/01: Seen in her bedroom admitted for management of Pneumonia, she is tobacco dependent patient and accept to use Nicotine Patch, at this time wearing nasal Cannula. 09/02: Resting comfortable in her bedroom, sleeping without oxygen, encourage ambulation, she was receiving Steroids before coming to ER and this could be the reason for her Elevated Leukocytosis, asked for new CBC and BMP for tomorrow morning Improving clinically, she was switched yesterday to Cefepime and following laboratory. blood culture and Urine culture negative. Objective Vital Signs Date Time Temp Pulse Resp B/P (MAP) Pulse Ox O2 Delivery O2 Flow Rate FiO2 09/02/17 09:03 97 21 09/02/17 08:15 Room Air 09/02/17 04:00 97.9 94 18 130/62 (84) 93 09/02/17 01:09 92 09/02/17 00:00 97.9 107 18 161/76 (104) 96 09/01/17 21:33 97 133/56 (81) 09/01/17 20:40 Room Air 09/01/17 20:06 100 09/01/17 20:00 98.5 109 18 124/57 (79) 94 09/01/17 17:42 Room Air 2.00 09/01/17 16:00 97.4 92 16 124/66 (85) 90 09/01/17 12:00 98.2 91 16 126/55 (78) 92 I/O 09/01/17 09/01/17 09/01/17 09/02/17 09/02/17 09/02/17 07:00 15:00 23:00 07:00 15:00 23:00 Intake Total 2470 ml 600 ml 250 ml 400 ml Output Total 1000 ml 700 ml Balance 2470 ml -400 ml 250 ml 400 ml -700 ml Intake Oral 120 ml IV Total 2350 ml 600 ml 250 ml 400 ml Output Urine Total 1000 ml 700 ml # Voids 1 # Bowel Movements 1 Result Diagram: 09/01/17 0810 09/01/17 0810 Imaging Last Impressions Chest X-Ray 08/31/17 0000 Signed Impressions: Service Date/Time: Thursday, August 31, 2017 22:20 - CONCLUSION: Bilateral central and lower lung infiltrates, non-consolidative. Cesar Castaneda MD Procedures None Other Results Laboratory Tests Test 08/31/17 21:15 08/31/17 21:43 08/31/17 22:25 09/01/17 08:10 Blood Urea Nitrogen 22 MG/DL 19 MG/DL Creatinine 1.29 MG/DL 1.11 MG/DL Random Glucose 71 MG/DL 111 MG/DL Total Protein 7.9 GM/DL 5.3 GM/DL Albumin 3.8 GM/DL 2.2 GM/DL Calcium Level 9.6 MG/DL 7.7 MG/DL Magnesium Level 1.7 MG/DL Alkaline Phosphatase 97 U/L 62 U/L Aspartate Amino Transf (AST/SGOT) 12 U/L 4 U/L Alanine Aminotransferase (ALT/SGPT) 30 U/L 16 U/L Total Bilirubin 0.3 MG/DL 0.3 MG/DL Sodium Level 137 MEQ/L 139 MEQ/L Potassium Level 4.0 MEQ/L 4.2 MEQ/L Chloride Level 99 MEQ/L 107 MEQ/L Carbon Dioxide Level 27.6 MEQ/L 23.9 MEQ/L Total Creatine Kinase 34 U/L Troponin I LESS THAN 0.02 NG/ML Lipase 176 U/L Urine Color YELLOW Urine Turbidity CLEAR Urine pH 6.0 Urine Specific [place] 1.008 Urine Protein 30 mg/dL Urine Glucose (UA) NEG mg/dL Urine Ketones NEG mg/dL Urine Occult Blood NEG Urine Nitrite NEG Urine Bilirubin NEG Urine Urobilinogen LESS THAN 2.0 MG/DL Urine Leukocyte Esterase SMALL Urine RBC 2 /hpf Urine WBC 11 /hpf Urine Squamous Epithelial Cells <1 /hpf Urine Amorphous Sediment RARE Urine Mucus FEW /lpf Microscopic Urinalysis Comment CULTURE INDICATED Metamyelocytes 1 % Dohle Bodies PRESENT Red Cell Morphology Comment NORMAL White Blood Count 34.3 TH/MM3 Red Blood Count 5.04 MIL/MM3 Hemoglobin 13.7 GM/DL Hematocrit 42.0 % Mean Corpuscular Volume 83.2 FL Mean Corpuscular Hemoglobin 27.2 PG Mean Corpuscular Hemoglobin Concent 32.6 % Red Cell Distribution Width 13.8 % Platelet Count 314 TH/MM3 Mean Platelet Volume 7.5 FL Neutrophils (%) (Auto) 88.7 % Lymphocytes (%) (Auto) 1.3 % Monocytes (%) (Auto) 2.1 % Eosinophils (%) (Auto) 7.6 % Basophils (%) (Auto) 0.3 % Neutrophils # (Auto) 30.4 TH/MM3 Lymphocytes # (Auto) 0.5 TH/MM3 Monocytes # (Auto) 0.7 TH/MM3 Eosinophils # (Auto) 2.6 TH/MM3 Basophils # (Auto) 0.1 TH/MM3 CBC Comment AUTO DIFF Differential Total Cells Counted 100 Neutrophils % (Manual) 65 % Band Neutrophils % 27 % Lymphocytes % 2 % Eosinophils % 6 % Neutrophils # (Manual) 31.6 TH/MM3 Differential Comment FINAL DIFF MANUAL Toxic Vacuolation PRESENT Platelet Estimate NORMAL Platelet Morphology Comment NORMAL Anion Gap 8 MEQ/L Estimat Glomerular Filtration Rate 49 ML/MIN Lactic Acid Level 1.9 mmol/L Objective Remarks PE: Obesity, no acute distress. GENERAL: Middle-aged white female in no acute distress. HEENT: PERRLA, EOMI. No scleral icterus or conjunctival pallor. No lid lag or facial droop. CARDIOVASCULAR: Regular rate and rhythm. No obvious murmurs to auscultation. No chest tenderness to palpation. RESPIRATORY: No obvious rhonchi or wheezing. Clear to auscultation. Breath sounds equal bilaterally. GASTROINTESTINAL: Abdomen soft, non-tender, nondistended. BS normal. MUSCULOSKELETAL: Extremities without clubbing, cyanosis, or edema. No obvious deformities. Diffuse rash NEUROLOGICAL: Awake, alert and oriented x4. No focal neurologic deficits. Moving both upper and lower extremities spontaneously. Medications and IVs Current Medications Medications (Trade) Dose Ordered Sig/Tasha Route Start Time Stop Time Status Last Admin Azithromycin 500 mg/Sodium Chloride 250 ml @ 250 mls/hr Q24H IV 09/01/17 22:00 09/01/17 21:34 Sodium Chloride 1,000 ml @ 100 mls/hr Q10H IV 08/31/17 23:14 09/01/17 21:35 (NS Flush) 2 ml UNSCH PRN IV FLUSH 08/31/17 23:15 (NS Flush) 2 ml BID IV FLUSH 09/01/17 09:00 09/02/17 08:09 (Zofran Inj) 4 mg Q6H PRN IVP 08/31/17 23:15 (Tylenol) 650 mg Q6H PRN PO 08/31/17 23:15 ([place] 5-325 Mg) 1 tab Q4H PRN PO 08/31/17 23:15 09/02/17 08:08 (Morphine Inj) 2 mg Q3H PRN IV PUSH 08/31/17 23:15 (Meeta-Colace) 1 tab BID PO 09/01/17 09:00 09/02/17 08:07 (Milk Of Magnesia Liq) 30 ml Q12H PRN PO 08/31/17 23:15 (Senokot) 17.2 mg Q12H PRN PO 08/31/17 23:15 (Dulcolax Supp) 10 mg DAILY PRN RECTAL 08/31/17 23:15 (Lactulose Liq) 30 ml DAILY PRN PO 08/31/17 23:15 (Abilify) 2 mg DAILY PO 09/01/17 09:00 09/02/17 08:07 (Lipitor) 10 mg DAILY PO 09/01/17 09:00 09/02/17 08:07 (Vistaril) 25 mg BID PRN PO 08/31/17 23:15 09/02/17 04:48 (Desyrel) 100 mg HS PO 09/01/17 21:00 09/01/17 20:44 (Flu (Quadrivalent) Vaccine Inj) 0.5 ml ONCE ONCE IM 09/02/17 10:00 09/02/17 10:01 Cefepime HCl 2000 mg/Sodium Chloride 100 ml @ 200 mls/hr Q24H IV 09/01/17 11:00 09/01/17 12:18 Miscellaneous Information 1 DAILY T-DERMAL 09/02/17 09:00 (Duoneb Neb) 1 ampule Q4HR NEB NEB 09/01/17 16:00 09/02/17 09:00 (Mucinex Er) 600 mg BID PO 09/01/17 21:00 09/02/17 08:07 (Ativan) 0.5 mg Q8H PRN PO 09/01/17 14:15 09/02/17 08:08 A/P Assessment and Plan 1. SIRS: HR 109, WBC 20.5, Source-PNA/UTI. S/p Blood/Urine Cultures, Ceftriaxone/Zithro in ER, will follow up cultures, switched to Cefepime yesterday, Blood cultures and Urine culture negative, worsening Leukocytosis yesterday, may be related to Steroid use before coming to ER. 2. UTI: U/a w/ UTI. Failed outpatient therapy, recently on Macrobid as outpatient for UTI. S/p Rocephin in ER, will continue w/ IV Abx, IVF 3. Acute Kidney Injury Improving continue IV fluids. decreased IV fluids to 83 ml per hour. 4. PNA: CXR w/ patchy infiltrates bilaterally, images reviewed by me. C/o ongoing cough for approx 1 wk. Continue w/ IV Abx, DuoNeb prn if needed. Cefepime and Azithromycin. 5. Bipolar Disorder: Stable. Resume home medications. 6. Obesity strongly recommended diet and exercise as outpatient. 7. Tobacco Abuse: Pt counselled. NicoDerm started, DVT Prophylaxis: Lovenox and encourage ambulation today. Social work for d/c planning as needed. Discharge Planning Expected by tomorrow Morning. Ky Lane MD Sep 02, 2017 09:20
[2017-09-02] MEDS ORDERED: INFLUENZA VIRUS VACCINE (QUADRIVALENT) 0.5 ML SYR IM ONE (10:00)
[2017-09-02] MEDS: REMOVE OLD PATCH T-DERMAL SCH (10:59)
[2017-09-02] MEDS: ENOXAPARIN SODIUM 40 MG/0.4 ML SYRINGE SQ SCH ×2 (11:00→11:06)
[2017-09-02] MEDS: CEFEPIME INJ 2,000 MG in SODIUM CHLORIDE 0.9% INJ 100 ML IV SCH (11:03)
[2017-09-02] MEDS: traZODone HCL 100 MG TAB PO SCH (20:42)
[2017-09-02] MEDS: AZITHROMYCIN INJ 500 MG in SODIUM CHLOR 0.9% 250 ML INJ 250 ML IV SCH (20:43)
[2017-09-03] VITALS (7 sets, daily range): BP systolic 115–128; BP diastolic 58–71; PULSE 84–92; RESP 18; TEMP 98.1–98.4; O2SAT 90–96
[2017-09-03] MEDS: RESP: ALBUTEROL 2.5 MG/IPRATROPIUM 0.5 MG NEB (SCH) NEB ×2 (01:05→08:47)
[2017-09-03] MEDS: SODIUM CHLOR 0.9% 1000 ML INJ 1,000 ML IV SCH (04:10)
[2017-09-03] MEDS: ACETAMINOPHEN/HYDROcodone 325 MG/5 MG TAB PO PRN ×2 (04:10→08:19)
[2017-09-03 08:18] LABS: AUTOMATED NEUTROPHIL # 3.8 TH/MM3 (1.8-7.7); BASOPHIL # 0.1 TH/MM3 (0-0.2); BASOPHIL % 0.7 % (0.0-2.0); EOSINOPHIL # 5.8 TH/MM3 (0-0.4); EOSINOPHIL % 46.2 % (0.0-4.0); HEMATOCRIT 37.4 % (35.0-46.0); HEMO FLAGS DIFF FINAL; LYMPH % 17.5 % (9.0-44.0); LYMPHOCYTE # 2.2 TH/MM3 (1.0-4.8); MEAN CELL VOLUME 82.7 FL (80.0-100.0); MEAN CORPUSCULAR HEMOGLOBIN 27.8 PG (27.0-34.0); MEAN CORPUSCULAR HGB CONC 33.6 % (32.0-36.0); MONO % 4.9 % (0.0-8.0); NEUT % 30.7 % (16.0-70.0); PLATELET COUNT 269 TH/MM3 (150-450); RED BLOOD COUNT 4.52 MIL/MM3 (4.00-5.30); RED CELL DISTRIBUTION WIDTH 13.6 % (11.6-17.2); WHITE BLOOD COUNT 12.5 TH/MM3 (4.0-11.0)
[2017-09-03] MEDS: DOCUSATE SODIUM 50 MG/SENNA 8.6 MG TAB PO SCH (08:19)
[2017-09-03] MEDS: LORazepam 0.5 MG TAB PO PRN (08:19)
[2017-09-03] MEDS: ATORVASTATIN 10 MG TAB PO SCH (08:20)
[2017-09-03] MEDS: guaiFENesin E.R. 600 MG TAB PO SCH (08:20)
[2017-09-03] MEDS: ARIPiprazole 2 MG TAB PO SCH (08:20)
[2017-09-03] MEDS: REMOVE OLD PATCH T-DERMAL SCH (08:21)
[2017-09-03] MEDS: SODIUM CHLORIDE 0.9% FLUSH 10 ML FLUSH IV FLUSH SCH (08:21)
--- NOTE | 2017-09-03 08:56 | HHI.PR ---
Subjective Remarks This is a pleasant 66 y/o Female with Hypertension, Rheumatoid Arthritis Anxiety disorder, Depression, Bipolar disorder, CAD, TIA, Brought in due to Dizziness and Nausea, vomit, Hypotensive when EMS Arrived , UTI on UA and CXR w/ patchy infiltrates bilaterally. S/p Blood/Urine Cultures, Rocephin/Zithr in ER. Of note, pt w/ multiple ER presentations recently, 08/13/17 seen in ER for c/o flank pain and cough, d/c'd w/ Mucinex and Ultram. Seen again on 08/14/17 for c/o flank pain, d/c'd w/ Percocet. States she was started on Macrobid for UTI as outpatient and had subsequent rash, seen again in ER on 08/26/17 for allergic reaction/rash and d/c' d on Prednisone 40mg po x5 days. 09/01: Seen in her bedroom admitted for management of Pneumonia, she is tobacco dependent patient and accept to use Nicotine Patch, at this time wearing nasal Cannula. 09/02: Resting comfortable in her bedroom, sleeping without oxygen, encourage ambulation, she was receiving Steroids before coming to ER and this could be the reason for her Elevated Leukocytosis, asked for new CBC and BMP for tomorrow morning Improving clinically, she was switched yesterday to Cefepime and following laboratory. blood culture and Urine culture negative. 09/03: Seen in her bedroom laboratory reviewed, no complaint, no nausea, vomit or diarrhea, she will go home today, she is able to ambulate well fully functional patient. discussed again about the need to stop smoking. Objective Vital Signs Date Time Temp Pulse Resp B/P (MAP) Pulse Ox O2 Delivery O2 Flow Rate FiO2 09/03/17 08:51 92 09/03/17 08:49 90 09/03/17 08:45 98.1 85 18 128/71 (90) 92 09/03/17 04:08 98.2 84 18 125/63 (83) 96 09/03/17 01:10 96 09/03/17 00:00 98.4 90 18 115/58 (77) 94 09/02/17 20:47 Room Air 09/02/17 20:41 106 09/02/17 20:00 97.7 86 18 140/63 (88) 93 09/02/17 16:00 97.7 95 16 143/70 (94) 95 09/02/17 15:38 96 21 09/02/17 12:00 97.7 86 16 134/61 (85) 95 09/02/17 10:04 89 09/02/17 09:03 97 21 I/O 09/02/17 09/02/17 09/02/17 09/03/17 09/03/17 09/03/17 07:00 15:00 23:00 07:00 15:00 23:00 Intake Total 400 ml Output Total 700 ml Balance 400 ml -700 ml IV Total 400 ml Output Urine Total 700 ml # Voids 1 Result Diagram: 09/03/17 0648 09/01/17 0810 Imaging Last Impressions Chest X-Ray 08/31/17 0000 Signed Impressions: Service Date/Time: Thursday, August 31, 2017 22:20 - CONCLUSION: Bilateral central and lower lung infiltrates, non-consolidative. Cesar Castaneda MD Procedures None Other Results Laboratory Tests Test 08/31/17 21:15 08/31/17 21:43 08/31/17 22:25 09/01/17 08:10 Blood Urea Nitrogen 22 MG/DL 19 MG/DL Creatinine 1.29 MG/DL 1.11 MG/DL Random Glucose 71 MG/DL 111 MG/DL Total Protein 7.9 GM/DL 5.3 GM/DL Albumin 3.8 GM/DL 2.2 GM/DL Calcium Level 9.6 MG/DL 7.7 MG/DL Magnesium Level 1.7 MG/DL Alkaline Phosphatase 97 U/L 62 U/L Aspartate Amino Transf (AST/SGOT) 12 U/L 4 U/L Alanine Aminotransferase (ALT/SGPT) 30 U/L 16 U/L Total Bilirubin 0.3 MG/DL 0.3 MG/DL Sodium Level 137 MEQ/L 139 MEQ/L Potassium Level 4.0 MEQ/L 4.2 MEQ/L Chloride Level 99 MEQ/L 107 MEQ/L Carbon Dioxide Level 27.6 MEQ/L 23.9 MEQ/L Total Creatine Kinase 34 U/L Troponin I LESS THAN 0.02 NG/ML Lipase 176 U/L Urine Color YELLOW Urine Turbidity CLEAR Urine pH 6.0 Urine Specific [place] 1.008 Urine Protein 30 mg/dL Urine Glucose (UA) NEG mg/dL Urine Ketones NEG mg/dL Urine Occult Blood NEG Urine Nitrite NEG Urine Bilirubin NEG Urine Urobilinogen LESS THAN 2.0 MG/DL Urine Leukocyte Esterase SMALL Urine RBC 2 /hpf Urine WBC 11 /hpf Urine Squamous Epithelial Cells <1 /hpf Urine Amorphous Sediment RARE Urine Mucus FEW /lpf Microscopic Urinalysis Comment CULTURE INDICATED Metamyelocytes 1 % Dohle Bodies PRESENT Red Cell Morphology Comment NORMAL Differential Total Cells Counted 100 Neutrophils % (Manual) 65 % Band Neutrophils % 27 % Lymphocytes % 2 % Eosinophils % 6 % Neutrophils # (Manual) 31.6 TH/MM3 Toxic Vacuolation PRESENT Platelet Estimate NORMAL Platelet Morphology Comment NORMAL Estimat Glomerular Filtration Rate 49 ML/MIN Lactic Acid Level 1.9 mmol/L Test 09/03/17 06:48 White Blood Count 12.5 TH/MM3 Red Blood Count 4.52 MIL/MM3 Hemoglobin 12.6 GM/DL Hematocrit 37.4 % Mean Corpuscular Volume 82.7 FL Mean Corpuscular Hemoglobin 27.8 PG Mean Corpuscular Hemoglobin Concent 33.6 % Red Cell Distribution Width 13.6 % Platelet Count 269 TH/MM3 Mean Platelet Volume 7.7 FL Neutrophils (%) (Auto) 30.7 % Lymphocytes (%) (Auto) 17.5 % Monocytes (%) (Auto) 4.9 % Eosinophils (%) (Auto) 46.2 % Basophils (%) (Auto) 0.7 % Neutrophils # (Auto) 3.8 TH/MM3 Lymphocytes # (Auto) 2.2 TH/MM3 Monocytes # (Auto) 0.6 TH/MM3 Eosinophils # (Auto) 5.8 TH/MM3 Basophils # (Auto) 0.1 TH/MM3 CBC Comment DIFF FINAL Differential Comment Objective Remarks PE: Obesity, no acute distress. GENERAL: Middle-aged white female in no acute distress. HEENT: PERRLA, EOMI. No scleral icterus or conjunctival pallor. No lid lag or facial droop. CARDIOVASCULAR: Regular rate and rhythm. No obvious murmurs to auscultation. No chest tenderness to palpation. RESPIRATORY: No obvious rhonchi or wheezing. Clear to auscultation. Breath sounds equal bilaterally. GASTROINTESTINAL: Abdomen soft, non-tender, nondistended. BS normal. MUSCULOSKELETAL: Extremities without clubbing, cyanosis, or edema. No obvious deformities. Diffuse rash NEUROLOGICAL: Awake, alert and oriented x4. No focal neurologic deficits. Moving both upper and lower extremities spontaneously. Medications and IVs Current Medications Medications (Trade) Dose Ordered Sig/Tasha Route Start Time Stop Time Status Last Admin Azithromycin 500 mg/Sodium Chloride 250 ml @ 250 mls/hr Q24H IV 09/01/17 22:00 09/02/17 20:43 Sodium Chloride 1,000 ml @ 83 mls/hr Q12H3M IV 08/31/17 23:14 09/01/17 21:35 (NS Flush) 2 ml UNSCH PRN IV FLUSH 08/31/17 23:15 (NS Flush) 2 ml BID IV FLUSH 09/01/17 09:00 09/03/17 08:21 (Zofran Inj) 4 mg Q6H PRN IVP 08/31/17 23:15 (Tylenol) 650 mg Q6H PRN PO 08/31/17 23:15 ([place] 5-325 Mg) 1 tab Q4H PRN PO 08/31/17 23:15 09/03/17 08:19 (Morphine Inj) 2 mg Q3H PRN IV PUSH 08/31/17 23:15 (Meeta-Colace) 1 tab BID PO 09/01/17 09:00 09/03/17 08:19 (Milk Of Magnesia Liq) 30 ml Q12H PRN PO 08/31/17 23:15 (Senokot) 17.2 mg Q12H PRN PO 08/31/17 23:15 (Dulcolax Supp) 10 mg DAILY PRN RECTAL 08/31/17 23:15 (Lactulose Liq) 30 ml DAILY PRN PO 08/31/17 23:15 (Abilify) 2 mg DAILY PO 09/01/17 09:00 09/03/17 08:20 (Lipitor) 10 mg DAILY PO 09/01/17 09:00 09/03/17 08:20 (Vistaril) 25 mg BID PRN PO 08/31/17 23:15 09/02/17 20:43 (Desyrel) 100 mg HS PO 09/01/17 21:00 09/02/17 20:42 Cefepime HCl 2000 mg/Sodium Chloride 100 ml @ 200 mls/hr Q24H IV 09/01/17 11:00 09/02/17 11:03 Miscellaneous Information 1 DAILY T-DERMAL 09/02/17 09:00 (Duoneb Neb) 1 ampule Q4HR NEB NEB 09/01/17 16:00 09/03/17 08:47 (Mucinex Er) 600 mg BID PO 09/01/17 21:00 09/03/17 08:20 (Ativan) 0.5 mg Q8H PRN PO 09/01/17 14:15 09/03/17 08:19 (Lovenox Inj) 40 mg Q24H SQ 09/02/17 10:00 A/P Assessment and Plan 1. SIRS: HR 109, WBC 20.5, Source-PNA/UTI. S/p Blood/Urine Cultures, Ceftriaxone/Zithro in ER, will follow up cultures, switched to Cefepime Blood cultures and Urine culture negative, Improved Leukocytosis probable was related to the use of Steroids as outpatient. 2. UTI: U/a w/ UTI. Failed outpatient therapy, recently on Macrobid as outpatient for UTI. S/p Rocephin in ER, will continue w/ IV Abx, IVF new culture negative. 3. Acute Kidney Injury Improved 4. PNA: CXR w/ patchy infiltrates bilaterally, images reviewed by me. C/o ongoing cough for approx 1 wk. Continue w/ IV Abx, DuoNeb prn if needed. Cefepime and Azithromycin. will go home on Azithromycin and follow with PCP. 5. Bipolar Disorder: Stable. Resume home medications. 6. Obesity strongly recommended diet and exercise as outpatient. 7. Tobacco Abuse: Pt counselled. NicoDerm started, strongly recommended to stop smoking. DVT Prophylaxis: Lovenox and encourage ambulation today. Discharge home today Discharge Planning Discharge Home today. Ky Lane MD Sep 03, 2017 08:56
[2017-09-03] MEDS ORDERED: AZIT500T2 PO (09:00)
[2017-09-03 09:01] LABS: POTASSIUM 3.5 MEQ/L (3.5-5.1)
--- NOTE | 2017-09-03 09:04 | HHI.DS ---
Discharge Summary Admission Date Aug 31, 2017 at 23:02 Discharge Date: Sep 03, 2017 Admitting Diagnosis ARF, UTI, pneumonia, lightheadedness, SIRS (1) SIRS (systemic inflammatory response syndrome) ICD Code: R65.10 - Systemic inflammatory response syndrome (SIRS) of non- infectious origin without acute organ dysfunction Diagnosis: Principal Status: Acute (2) UTI (urinary tract infection) ICD Code: N39.0 - Urinary tract infection, site not specified Diagnosis: Principal (3) RAYSA (acute kidney injury) ICD Code: N17.9 - Acute kidney failure, unspecified Diagnosis: Principal (4) PNA (pneumonia) ICD Code: J18.9 - Pneumonia, unspecified organism Diagnosis: Principal (5) Tobacco abuse ICD Code: Z72.0 - Tobacco use Diagnosis: Principal Procedures None Brief History - From Admission This is a 66-year-old female with a PMH of HTN, Rheumatoid Arthritis, Anxiety, Depression, Bipolar Disorder, CAD, h/o TIA, Fibromyalgia and Tobacco Abuse who was brought to the ER by EMS secondary to c/o dizziness in addition to few episodes of nausea/vomiting. Denies fever, chills or diarrhea. Per pt she was at a friend's house having few drinks when she had sudden onset of dizziness. Upon EMS arrival, pt noted to have BP 60's systolic, s/p IVF w/ improvement. BP 121/71, HR 109, O2 sat 98% on RA, Afebrile. WBC 20.5. Creatinine 1.29, produces 0.89 on 08/26/17. Lactic Acid 2.3. Troponin negative. UA positive for UTI. CXR w/ patchy infiltrates bilaterally. S/p Blood/Urine Cultures, Rocephin/Zithr in ER. Of note, pt w/ multiple ER presentations recently, 08/13/17 seen in ER for c/o flank pain and cough, d/c'd w/ Mucinex and Ultram. Seen again on 08/14/17 for c/ o flank pain, d/c'd w/ Percocet. States she was started on Macrobid for UTI as outpatient and had subsequent rash, seen again in ER on 08/26/17 for allergic reaction/rash and d/c'd on Prednisone 40mg po x5 days. CBC/BMP: 09/03/17 0648 09/01/17 0810 Significant Findings Laboratory Tests Test 08/31/17 21:15 08/31/17 21:43 08/31/17 22:25 08/31/17 22:30 Blood Urea Nitrogen 22 MG/DL (7-18) Creatinine 1.29 MG/DL (0.50-1.00) Random Glucose 71 MG/DL (74-106) Aspartate Amino Transf (AST/SGOT) 12 U/L (15-37) Estimat Glomerular Filtration Rate 42 ML/MIN (>89) Troponin I LESS THAN 0.02 NG/ML Urine Protein 30 mg/dL (NEG-TRACE) Urine Leukocyte Esterase SMALL (NEG) Urine WBC 11 /hpf (0-5) Urine Mucus FEW /lpf (OCC) White Blood Count 20.5 TH/MM3 (4.0-11.0) Neutrophils % (Manual) 78 % (16-70) Band Neutrophils % 21 % (0-6) Neutrophils # (Manual) 20.5 TH/MM3 (1.8-7.7) Toxic Vacuolation PRESENT (NONE SEEN) Dohle Bodies PRESENT (NONE SEEN) Lactic Acid Level 2.3 mmol/L (0.4-2.0) Test 09/01/17 08:10 09/03/17 06:48 White Blood Count 34.3 TH/MM3 (4.0-11.0) 12.5 TH/MM3 (4.0-11.0) Neutrophils (%) (Auto) 88.7 % (16.0-70.0) Lymphocytes (%) (Auto) 1.3 % (9.0-44.0) Eosinophils (%) (Auto) 7.6 % (0.0-4.0) 46.2 % (0.0-4.0) Neutrophils # (Auto) 30.4 TH/MM3 (1.8-7.7) Lymphocytes # (Auto) 0.5 TH/MM3 (1.0-4.8) Eosinophils # (Auto) 2.6 TH/MM3 (0-0.4) 5.8 TH/MM3 (0-0.4) Band Neutrophils % 27 % (0-6) Lymphocytes % 2 % (9-44) Eosinophils % 6 % (0-4) Neutrophils # (Manual) 31.6 TH/MM3 (1.8-7.7) Toxic Vacuolation PRESENT (NONE SEEN) Blood Urea Nitrogen 19 MG/DL (7-18) Creatinine 1.11 MG/DL (0.50-1.00) Random Glucose 111 MG/DL (74-106) Total Protein 5.3 GM/DL (6.4-8.2) Albumin 2.2 GM/DL (3.4-5.0) Calcium Level 7.7 MG/DL (8.5-10.1) Aspartate Amino Transf (AST/SGOT) 4 U/L (15-37) Estimat Glomerular Filtration Rate 49 ML/MIN (>89) 70 ML/MIN (>89) Imaging Last Impressions Chest X-Ray 08/31/17 0000 Signed Impressions: Service Date/Time: Thursday, August 31, 2017 22:20 - CONCLUSION: Bilateral central and lower lung infiltrates, non-consolidative. Cesar Castaneda MD PE at Discharge PE: Obesity, no acute distress. GENERAL: Middle-aged white female in no acute distress. HEENT: PERRLA, EOMI. No scleral icterus or conjunctival pallor. No lid lag or facial droop. CARDIOVASCULAR: Regular rate and rhythm. No obvious murmurs to auscultation. No chest tenderness to palpation. RESPIRATORY: No obvious rhonchi or wheezing. Clear to auscultation. Breath sounds equal bilaterally. GASTROINTESTINAL: Abdomen soft, non-tender, nondistended. BS normal. MUSCULOSKELETAL: Extremities without clubbing, cyanosis, or edema. No obvious deformities. Diffuse rash NEUROLOGICAL: Awake, alert and oriented x4. No focal neurologic deficits. Moving both upper and lower extremities spontaneously. Hospital Course This is a pleasant 66 y/o Female with Hypertension, Rheumatoid Arthritis Anxiety disorder, Depression, Bipolar disorder, CAD, TIA, Brought in due to Dizziness and Nausea, vomit, Hypotensive when EMS Arrived , UTI on UA and CXR w/ patchy infiltrates bilaterally. S/p Blood/Urine Cultures, Rocephin/Zithr in ER. Of note, pt w/ multiple ER presentations recently, 08/13/17 seen in ER for c/o flank pain and cough, d/c'd w/ Mucinex and Ultram. Seen again on 08/14/17 for c/o flank pain, d/c'd w/ Percocet. States she was started on Macrobid for UTI as outpatient and had subsequent rash, seen again in ER on 08/26/17 for allergic reaction/rash and d/c' d on Prednisone 40mg po x5 days. 09/01: Seen in her bedroom admitted for management of Pneumonia, she is tobacco dependent patient and accept to use Nicotine Patch, at this time wearing nasal Cannula. 09/02: Resting comfortable in her bedroom, sleeping without oxygen, encourage ambulation, she was receiving Steroids before coming to ER and this could be the reason for her Elevated Leukocytosis, asked for new CBC and BMP for tomorrow morning Improving clinically, she was switched yesterday to Cefepime and following laboratory. blood culture and Urine culture negative. 09/03: Seen in her bedroom laboratory reviewed, no complaint, no nausea, vomit or diarrhea, she will go home today, she is able to ambulate well fully functional patient. discussed again about the need to stop smoking. Assessment and Plan 1. SIRS: HR 109, WBC 20.5, Source-PNA/UTI. S/p Blood/Urine Cultures, Ceftriaxone/Zithro in ER, will follow up cultures, switched to Cefepime Blood cultures and Urine culture negative, Improved Leukocytosis probable was related to the use of Steroids as outpatient. 2. UTI: U/a w/ UTI. Failed outpatient therapy, recently on Macrobid as outpatient for UTI. S/p Rocephin in ER, will continue w/ IV Abx, IVF new culture negative. 3. Acute Kidney Injury Improved 4. PNA: CXR w/ patchy infiltrates bilaterally, images reviewed by me. C/o ongoing cough for approx 1 wk. Continue w/ IV Abx, DuoNeb prn if needed. Cefepime and Azithromycin. will go home on Azithromycin and follow with PCP. 5. Bipolar Disorder: Stable. Resume home medications. 6. Obesity strongly recommended diet and exercise as outpatient. 7. Tobacco Abuse: Pt counselled. NicoDerm started, strongly recommended to stop smoking. DVT Prophylaxis: Lovenox and encourage ambulation today. Discharge home today Discharge Planning Discharge Home today. Pt Condition on Discharge: Good Discharge Disposition: Discharge Home Discharge Time: <= 30 minutes Discharge Instructions DIET: Follow Instructions for: Heart Healthy Diet Activities you can perform: Regular-No Restrictions Ky Lane MD Sep 03, 2017 09:03
== END 2017-09-03 11:21 | disposition home or self-care (01) | DRG 194 ==
LOC: NEPC 20:31 → NEDA 23:02 → N05B 09-01 01:53
PROVIDERS: ADMIT Internal Medicine; ATTEND Internal Medicine
DX: J18.9 Pneumonia, unspecified organism (principal); N39.0 Urinary tract infection, site not specified; N17.9 Acute kidney failure, unspecified; F31.9 Bipolar disorder, unspecified; E66.9 Obesity, unspecified; Z68.34 Body mass index [BMI] 34.0-34.9, adult; F17.210 Nicotine dependence, cigarettes, uncomplicated; Z86.73 Personal history of transient ischemic attack (TIA), and cerebral infarction without residual deficits; M06.9 Rheumatoid arthritis, unspecified; I25.10 Atherosclerotic heart disease of native coronary artery without angina pectoris; I10 Essential (primary) hypertension; M79.7 Fibromyalgia; Z23 Encounter for immunization; F41.9 Anxiety disorder, unspecified
CPT/HCPCS: 71010; 80048; 80053; 81001; 82550; 83605; 83690; 83735; 84484; 85007; 85025; 85027; 87040; 87086; 90471; 90686; 93005; 94150; 94640; 94664; 96360; G0008; J0456; J0692; J0696; J1650; J7030; J7040; J7050; Q0177; Q2038

== ENCOUNTER 2017-11-11 14:56 | Emergency (ER) | payer OTHER, MEDICAID ==
[~2017-11-11 14:56] MED LIST changes: -ABIL2TAB2 PO; +ARIP2 PO; +ASPI-516 PO; -ASPI81CH PO; +AZIT500T2 PO; -BENA25TA6 PO; +HUMIBIDDM PO; -MUCI30TA2 PO; -OMEP20TA PO; +OMEP20TA93 PO; -POTA10TA2 PO; -PRED20 PO; +TRAZ100T10 PO; -TRAZ100T6 PO
[2017-11-11 15:11] VITALS: BP 148/75; PULSE 96; RESP 20; TEMP 98.5; O2SAT 94
[2017-11-11] MEDS ORDERED: OXYB5TAB8 PO (15:31)
[2017-11-11] MEDS ORDERED: CETI10 PO (15:31)
[2017-11-11] MEDS ORDERED: PRIL20TA2 PO (15:31)
[2017-11-11] MEDS ORDERED: POTA10CA PO (15:31)
[2017-11-11] MEDS ORDERED: ZANT150T2 PO (15:31)
[2017-11-11] MEDS ORDERED: NEUR400C PO (15:33)
--- NOTE | 2017-11-11 15:36 | PD ---
HPI Chief Complaint: Respiratory Symptoms Time Seen by Provider: 15:24 Travel History International Travel<30 days: No Contact w/Intl Traveler<30days: No Traveled to known affect area: No History of Present Illness HPI The patient was seen and examined in the presence of the nurse. This patient is a lifelong smoker and has a chronic daily cough. She came in to the ER because today there was some blood flecks when she coughed. She is not having shortness of breath or chest pain. Symptoms severity is mild. No alleviating factors. She takes a daily aspirin but no other blood thinners. No exacerbating factors. PFSH Past Medical History Hx Anticoagulant Therapy: Yes (ASA) Arthritis: Yes Asthma: No Autoimmune Disease: No Blood Disorders: No Bipolar Disorder: Yes Anxiety: Yes Depression: Yes Heart Rhythm Problems: No Cancer: No Cardiac Catheterization: No Cardiovascular Problems: No High Cholesterol: Yes Chest Pain: No Congestive Heart Failure: No COPD: Yes Cerebrovascular Accident: Yes (TIAs X2) Coronary Artery Disease: Yes Diabetes: No Diminished Hearing: No Deep Vein Thrombosis: Yes (PE) Endocrine: No Fibromyalgia: Yes Gastrointestinal Disorders: Yes GERD: Yes Headaches: Yes (LOPEZ WHEN INR GETS HIGH) Hiatal Hernia: No Hypertension: No Immune Disorder: No Implanted Vascular Access Dvce: No Kidney Stones: Yes Musculoskeletal: Yes (fibromyalgia, arthritis) Neurologic: Yes (TIAs X2) Psychiatric: Yes Reproductive: No Respiratory: Yes Immunizations Current: Yes Migraines: Yes Myocardial Infarction: No Renal Failure: No Seizures: No Sickle Cell Disease: No Sleep Apnea: No Thyroid Disease: No Ulcer: No Influenza Vaccination: Yes ?: Not Menopausal: Yes Ovarian Cysts: Yes Tubal Ligation: Yes (1975) Past Surgical History Abdominal Surgery: Yes (GALLBLADDER REMOVED) AICD: No Appendectomy: Yes Cardiac Surgery: No Cholecystectomy: Yes Coronary Artery Bypass Graft: No Ear Surgery: No Endocrine Surgery: No Eye Surgery: No Genitourinary Surgery: No Gynecologic Surgery: Yes (right ovary removed) Hysterectomy: Yes Insulin Pump: No Joint Replacement: No Neurologic Surgery: Yes Oral Surgery: Yes (Complete teeth extraction) Pacemaker: No Thoracic Surgery: No Tonsillectomy: Yes Other Surgery: Yes (BL ankles, BL knees, pilonidal cyst) Family History Family Myocardial Infarction: Yes ( STATED) Social History Alcohol Use: No Tobacco Use: Yes (1 PPD) Substance Use: No Allergies-Medications (Allergen,Severity, Reaction): Coded Allergies: nitrofurantoin (Verified Allergy, Unknown, 11/11/17) RASH Reported Meds & Prescriptions Reported Meds & Active Scripts Active Reported Neurontin (Gabapentin) 400 Mg Cap 400 Mg PO TID Potassium Chloride ER (Potassium Chloride) 10 Meq Cap 10 Meq PO BID Prilosec (Omeprazole Magnesium) 20 Mg Tab 20 Mg PO DAILY Ditropan (Oxybutynin Chloride) 5 Mg Tab 5 Mg PO Q12HR Zantac (Ranitidine HCl) 150 Mg Tab 150 Mg PO BID Cetirizine (Cetirizine HCl) 10 Mg Tab 10 Mg PO DAILY Flexeril (Cyclobenzaprine HCl) 5 Mg Tab 5 Mg PO HS Ventolin Hfa 18 GM Inh (Albuterol Sulfate) 90 Mcg/Act Aer 2 Puff INH Q4-6H PRN Lipitor (Atorvastatin Calcium) 10 Mg Tab 10 Mg PO DAILY Bethanechol 25 Mg Tab 25 Mg PO QID Bentyl (Dicyclomine HCl) 10 Mg Cap 10 Mg PO TID PRN Lexapro (Escitalopram Oxalate) 20 Mg Tab 20 Mg PO DAILY Vitamin D-1000 (Cholecalciferol) 1,000 Unit Tab 50,000 Units PO WEEKLY Vistaril (Hydroxyzine Pamoate) 25 Mg Cap 25 Mg PO BID PRN Albuterol Neb (Albuterol Sulfate) 2.5 Mg/3 Ml Neb 2.5 Mg NEB Q4HR NEB While awake Propranolol (Propranolol HCl) 20 Mg Tab 20 Mg PO Q12HR Requip (Ropinirole) 3 Mg Tab 3 Mg PO HS Trazodone (Trazodone HCl) 100 Mg Tablet 100 Mg PO HS Spiriva Handihaler (Tiotropium Inh) 18 Mcg Cap 18 Mcg INH DAILY 1 capsule = 18 mcg Aspirin 81 Mg Chew 81 Mg PO DAILY Abilify (Aripiprazole) 2 Mg Tab 2 Mg PO DAILY Fosamax (Alendronate Sodium) 70 Mg Tab 70 Mg PO Q7D Review of Systems General / Constitutional: No: Fever Eyes: No: Visual changes HENT: No: Headaches Cardiovascular: No: Chest Pain or Discomfort Respiratory: Positive: Cough, Hemoptysis, No: Shortness of Breath Gastrointestinal: No: Abdominal Pain Genitourinary: No: Dysuria Musculoskeletal: No: Pain Skin: No Rash Neurologic: No: Weakness Psychiatric: No: Depression Endocrine: No: Polydipsia Hematologic/Lymphatic: No: Easy Bruising Physical Exam Narrative GENERAL: Well-nourished, well-developed patient in no apparent distress. SKIN: Focused skin assessment reveals no rash and nodules. Skin is Warm and dry. HEAD: Atraumatic. Normocephalic. EYES: Pupils equal and round. No scleral icterus. No injection or drainage. ENT: No nasal bleeding or discharge. Mucous membranes pink and moist. NECK: Trachea midline. No JVD. CARDIOVASCULAR: Regular rate and rhythm. No murmur appreciated. RESPIRATORY: No accessory muscle use. Clear to auscultation. Breath sounds equal bilaterally. GASTROINTESTINAL: Abdomen soft, non-tender, nondistended. Hepatic and splenic margins not palpable. MUSCULOSKELETAL: No obvious deformities. No clubbing. No cyanosis. No edema. NEUROLOGICAL: Awake and alert. No obvious cranial nerve deficits. Motor grossly within normal limits. Normal speech. PSYCHIATRIC: Appropriate mood and affect; insight and judgment normal. Data Data Last Documented VS Vital Signs Date Time Temp Pulse Resp B/P (MAP) Pulse Ox O2 Delivery O2 Flow Rate FiO2 11/11/17 16:41 85 18 137/80 (99) 96 Room Air 11/11/17 15:11 98.5 Orders Orders Chest, Single Ap (11/11/17 ) [facility] Medical Decision Making Medical Screen Exam Complete: Yes Emergency Medical Condition: Yes Medical Record Reviewed: Yes Differential Diagnosis Bronchitis, COPD, TB, lung cancer Narrative Course I have reviewed the patient's electronic medical record. I reviewed her chest x-ray which shows chronic changes but nothing acute I don't have any clinical suspicion of PE. Patient should quit smoking and follow-up with her primary care physician. Consider chest CT to evaluate for tumor or mass as outpatient She looks clinically well Diagnosis Primary Impression: Cough with hemoptysis Additional Instructions: The patient was advised to follow up with their physician and return if they worsen. Med/Other Pt SpecificInfo: Other Disposition: 01 DISCHARGE HOME Condition: Stable Stas Arshad MD Nov 11, 2017 15:36
--- NOTE | 2017-11-11 16:26 | RADRPT ---
EXAM DATE/TIME: 11/11/2017 15:40 [facility] COMPARISON: CHEST SINGLE AP, August 31, 2017, 22:20. INDICATIONS : Hemoptysis, tightness in chest, shortness of breath. MEDICAL HISTORY : Hypertension. Chronic obstructive pulmonary disease. Smoker. SURGICAL HISTORY : None. ENCOUNTER: Initial ACUITY: 1 day PAIN SCORE: 1/10 LOCATION: Bilateral chest FINDINGS: The heart is normal in size. There are chronic interstitial changes the pulmonary parenchyma. No susp icious lesions are seen. The visualized bony structures are grossly intact. CONCLUSION: 1. Chronic appearing interstitial changes. No acute abnormality identified. Stable compared to previo us examination. Kee Gonzales MD on November 11, 2017 at 16:00 Board Certified Radiologist. This report was verified electronically.
[2017-11-11 16:41] VITALS: BP 137/80; PULSE 85; RESP 18; O2SAT 96
== END 2017-11-11 17:01 | disposition home or self-care (01) ==
LOC: PHED 14:56
DX: R04.2 Hemoptysis (principal); J44.9 Chronic obstructive pulmonary disease, unspecified; E78.00 Pure hypercholesterolemia, unspecified; I25.10 Atherosclerotic heart disease of native coronary artery without angina pectoris; F17.210 Nicotine dependence, cigarettes, uncomplicated
CPT/HCPCS: 71010; 99283